=== PATIENT | male | born 1950 | race Hispanic/Latino ===

== ENCOUNTER 2017-01-28 07:13 | Day surgery (SDC) | payer OTHER ==
[2017-01-27 09:18] LABS: MANUAL DIFF NEEDED? NO
[2017-01-27 09:33] LABS: BASO% 0.3 % (0.0-0.8); EOS# 0.27 X1000 (0.0-0.7); EOS% 4.2 % (0.0-10.0); HEMATOCRIT 39.2 % (42.0-52.0); HEMOGLOBIN 12.8 g/dL (14.0-18.0); LYMPH# 0.84 X1000 (1.2-3.4); LYMPH% 13.2 % (20.5-51.1); MCH 29.6 PG (27-31); MCHC 32.7 g/dL (33-37); MCV 90.5 FL (81-99); MONO# 0.76 X1000 (0.11-0.59); MONO% 11.9 % (1.7-9.3); MPV 10.4 FL (7.4-10.4); NEUT% 70.4 % (42.2-75.2); PLT 200 X1000 (130-400); RBC 4.33 XMIL (4.7-6.1)
[2017-01-27 10:20] LABS: CALCIUM 9.3 mg/dL (8.8-10.2); POTASSIUM 4.4 mmol/L (3.5-5.1)
[2017-01-28] MEDS ORDERED: REGLAN ONE (08:33)
[2017-01-28] MEDS ORDERED: PEPCID ONE (08:33)
[2017-01-28] MEDS ORDERED: 1/2 NS 500 ML ONE (08:33)
[2017-01-28] MEDS ORDERED: KEFZOL 2 GM/D5W 50 ML ONE (09:53)
[2017-01-28] MEDS ORDERED: MARCAINE 0.25% PF/EPI 1:200,000 ONE (11:24)
[2017-01-28] MEDS ORDERED: HEPARIN ONE ×2 (11:24→15:24)
[2017-01-28] MEDS ORDERED: XYLOCAINE 1% ONE (11:25)
[2017-01-28] MEDS ORDERED: NS 1,000 ML ONE (11:25)
--- NOTE | 2017-01-28 14:32 | OPERATIVE NOTE ---
PROCEDURE DATE: 01/28/2017 PREOPERATIVE DIAGNOSIS: End-stage renal disease requiring long-term hemodialysis access. POSTOP DIAGNOSIS: End-stage renal disease requiring long-term hemodialysis access. PROCEDURE: Creation of left brachiocephalic fistula. SURGEON: Hosea Davis MD INTERMODAL TRUCK DRIVER: Dr. Hernandes. Dr. Hernandes assisted with the retraction, dissection and creation of the fistula. ANESTHESIA: General endotracheal. INTRAOPERATIVE FINDINGS: Good vein and good artery for fistula. COMPLICATION: None time of dictation. EBL: 100 mL. BRIEF HISTORY: The patient is a 66-year-old male with end-stage renal disease. He needed a more durable long-term access for hemodialysis. The risks, benefits, and alternatives for fistula were discussed. He had preoperative vein mapping, which showed a brachiocephalic fistula being the best possible candidate. The risks, benefits, alternatives for procedure were discussed. All questions were answered. DESCRIPTION OF PROCEDURE: After informed consent was obtained, patient brought to the operative theatre, transferred to operating table, placed supine position. General endotracheal anesthesia was then performed without complication. Formal time-out was then performed confirming patient, date procedure and side, all in agreement. At that time the left arm was completely prepped and draped in sterile fashion. After the time-out, we used the markings on the skin for the vein and artery, made longitudinal incisions over these 2 areas. We were able to identify and dissect out both the brachial artery and the cephalic vein. We tailored them to be a sufficient length to accommodate this. We ligated the cephalic vein and proximally at a bifurcation and suture ligated the more proximal aspects. We tunneled it under the skin slightly to the brachial artery which we had dissected out fully. We placed vessel loops around the artery and all the branches. We gave the patient 3000 heparin. We made a small arteriotomy, flushed the proximal and distal aspects the brachial artery. There was good flow. We then created our anastomoses using 6-0 Prolene. There was no obvious bleeding noted at this point. There was a good thrill through the vein and dilated up appropriately. We then irrigated the area copiously until the suction fluid was clear. Then we closed the skin in layers using 3-0 Vicryl and 4-0 Monocryl. The patient tolerated procedure well and had perfusion to his extremity at the completion the case and sterile dressing applied.
[2017-01-28] MEDS ORDERED: FENTANYL ONE (15:15)
[2017-01-28] MEDS ORDERED: DIPRIVAN 1% ONE (15:15)
[2017-01-28] MEDS ORDERED: ZOFRAN ONE (15:24)
[2017-01-28] MEDS ORDERED: EPHEDRINE ONE (15:25)
[2017-01-28 16:14] VITALS: BP 134/70
--- NOTE | 2017-01-28 17:42 | Extremity Venous Study ---
PROCEDURE NAME: Vein Map/Hemodialysis LT Arm - 01/28/2017 REFERRING PHYSICIAN: Dr. Davis. INTERPRETING PHYSICIAN: Dr. Zamorano. SEASONAL DRIVER: Kaity. The patient is here to have his veins evaluated for fistula construction. The left upper extremity shows the left brachial artery be 7.0 mm, left radial 2.1, left ulnar 2.4. The vessels appear calcific. The cephalic vein zone 1 6.5, zone 2 5.6, zone 3 3.3, zone 4 4.0, zone 5 5.7, zone 6 4.7, zone 7 4.5, zone 8 3.8, there is a clot in the cephalic vein at the wrist. Basilic veins zone 2 6.6, zone 3 5.7, zone 4 5.5, zone 5 3.5, the median cubital vein is 4.7, the basilic vein in zone 6 3.6, zone 7 3.2, zone 8 3.1. INTERPRETATION: The left cephalic vein should be usable. It should be usable not at the most distal aspect of the wrist but in the mid forearm it is usable also above the elbow, the basilic vein also is usable. There appears to be some diminished arterial signals at the wrist.
== END 2017-01-28 16:00 | disposition home or self-care (01) ==
LOC: OPS 07:13
PROVIDERS: ATTEND Surgery
DX: I12.0 Hypertensive chronic kidney disease with stage 5 chronic kidney disease or end stage renal disease (principal); N18.6 End stage renal disease; D64.9 Anemia, unspecified; E11.9 Type 2 diabetes mellitus without complications; E78.00 Pure hypercholesterolemia, unspecified; Z87.891 Personal history of nicotine dependence; Z79.4 Long term (current) use of insulin
CPT/HCPCS: 80048; 82948; 85025; J0690; J1644; J2405; J3010; J7030

== ENCOUNTER 2018-12-08 08:44 | Inpatient (IN) ==
--- NOTE | 2018-12-08 09:17 | PROVIDER DOCUMENTATION ---
HPI-Abdominal Pain/GI Problem - General Chief Complaint: Abdominal Pain Stated Complaint: ABD PAIN Time Seen by Provider: 12/08/18 08:49 Source: patient, family Unable to obtain history due to:: other (limitd due to language) Allergies/Adverse Reactions: Patient Allergies Allergy/AdvReac Type Severity Reaction Status Date / Time No Known Allergies Allergy Verified 08/18/18 11:59 Home Medications: Home Medication List Medication Instructions Recorded Confirmed Last Taken Type Amlodipine [Norvasc] 5 mg PO BID #0 tablet 11/11/16 12/08/18 08/18/18 Rx Insulin Aspart [Novolog] 10 unit SQ TID 01/27/17 12/08/18 08/17/18 13:00 History ROSUVAstatin [Crestor] 1 tab PO HS 01/28/17 12/08/18 08/17/18 History Carvedilol [Coreg] 12.5 mg PO BID 06/25/18 12/08/18 08/18/18 History Insulin Detemir [Levemir] 22 unit SUBQ HS 06/25/18 12/08/18 08/17/18 History Apixaban [Eliquis] 5 mg PO DAILY 12/08/18 12/08/18 Unknown History - History of Present Illness-ABD Nature of Presenting Problems: yest afternoon, began with pain in back, has moved to LLQ, radiates to leg, testicle. No fever, admits to some dysuria, heamturia. No N/V. Says not had BM in sev days, diff examiners get from 5-7 days. Gets dialysis MWF Quality of Pain: reports: sharp Severity in ED: reports: moderate Timing: reports: still present Activities at Onset: reports: none Modifying Factors: improves with: nothing Last BM: other (5-7 days) Review of Systems - Adult - REVIEW OF SYSTEMS - ADULT Constitutional: reports: no symptoms reported Eyes: reports: no symptoms reported Ears, Nose, Mouth & Throat: reports: no symptoms reported Cardiovascular: reports: no symptoms reported Respiratory: reports: no symptoms reported Gastrointestinal: reports: see HPI Genitourinary: reports: see HPI Musculoskeletal: reports: no symptoms reported Integumentary: reports: no symptoms reported Neurological: reports: no symptoms reported Psychiatric: reports: no symptoms reported Endocrine: reports: no symptoms reported Hematologic/Lymphatic: reports: no symptoms reported Allergic/Immunologic: reports: no symptoms reported Past History - Adult - PAST MEDICAL HISTORY-ADULT Review of Records: reports: Medications Reviewed Major Childhood Illnesses: reports: denies history Cardiovascular: reports: cardiac disease, CAD, HTN, ID Respiratory: reports: sleep apnea Gastrointestinal: reports: denies history Obstetrical/Gynecological: reports: denies history Genitourinary: reports: prostate cancer Musculoskeletal: reports: denies history Neurological: reports: CVA (x3) Endocrine/Immune: reports: Diabetes Other Conditions: reports: denies history - PRIOR SURGERIES/PROCEDURES Surgical/Procedure History: reports: cardiac stent, hernia repair, orthopedic ( extremity) (left 5th toe amputation), other (Skin I&D) - IMMUNIZATION STATUS Childhood Immunizations: See Nurse Assessment Flu Vaccine: See Nurse Assessment - FAMILY HISTORY Family History: reviewed, not pertinent Physical Exam-General - PHYSICAL EXAM-ADULT Initial Vital Signs Reviewed: Yes - CONSTITUTIONAL General Appearance: appears well, alert, no apparent distress - EYES Eyes: PERRL/EOMI, pink conjunctivae - HEAD, EARS, NOSE, MOUTH & THROAT HENMT: normocephalic/atraumatic, moist mucous membranes, normal ENT inspection, pharynx normal - NECK Neck: full range of motion, supple, normal inspection - RESPIRATORY Respiratory: lungs clear, normal breath sounds, no pleuratic chest pain, no respiratory distress, no accessory muscle use - CARDIOVASCULAR Cardiovascular: regular rate, rhythm, no edema, no gallop, no murmur - GASTROINTESTINAL (ABDOMEN) Abdominal Exam: normal bowel sounds, soft, tenderness (mild tender epigastrum, entire L abd) - MUSCULOSKELETAL Back Exam: normal inspection, no CVA tenderness, no vertebral tenderness Extremity: normal range of motion, non-tender - SKIN Integumentary: normal color, normal turgor, warm/dry - NEUROLOGIC Neurologic: med spa manager II-XII nml as tested, grossly normal, no motor/sensory deficits - PSYCHIATRIC Psych/Mental Status: normal mood/affect, normal thought content, normal thought process, oriented x 3 Progress - PLAN OF CARE/RESULTS Progress/Plan/Lab Results: Orders Category Date Time Status CT RENAL STONE SEARCH [CT] Stat Exams 12/08/18 09:11 Ordered CBC WITH DIFF [HEME] Stat Lab 12/08/18 09:11 Uncollected COMPREHENSIVE METABOLIC PANEL [CHEM] Stat Lab 01/15/19 09:11 Uncollected URINALYSIS W/POSS RFLX CULT [URINALYSIS] Stat Lab 12/08/18 09:11 Uncollected Result Diagrams: 12/08/18 10:12 12/08/18 10:12 - CT/MRI 1 CT Study: Renal Stone Impression: Abnormal (EXAM: CT RENAL STONE SEARCH INDICATION: Left lower quadrant and testicle pain TECHNIQUE: This exam was performed using automated exposure control, adjustment of mA or kV according to patient size, and/or use of iterative reconstruction technique. COMPARISON: 08/03/2018 FINDINGS: There is subsegmental atelectasis and/or scarring at the lung bases. The gallbladder is contracted and there are layering stones or sludge in the gallbladder lumen. There is subtle haziness at the periphery of the gallbladder which could indicate cholecystitis. However, this was also seen on the previous study and is not as prominent on the current study. The liver, spleen, pancreas , and adrenal glands are essentially unremarkable. There is no renal or ureteral stone. There is inflammatory stranding surrounding the left renal pelvis and along the left ureter. There are also droplets of gas in the left renal collecting system and the proximal left ureter as well as a small droplet of gas in the urinary bladder. 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 There is associated mild dilation of the left renal collecting system. There is no definite gas associated with the left renal parenchyma per se to indicate emphysematous pyelonephritis. However, a component of pyelonephritis cannot be excluded with no IV contrast. There are stable small cysts arising from the left renal cortex. The urinary bladder is nondistended. The appendix is normal. The GI tract is essentially unremarkable, otherwise. IMPRESSION: 1.Findings consistent with at least emphysematous pyelitis on the left. Please see above discussion. 2.No renal or ureteral stone identified. 3.Cholelithiasis and mild stranding around the gallbladder which could indicate cholecystitis. However, this stranding is not as significant as the previous study. 4.Other external/nonacute findings detailed above. Electronically signed by Eduin Staples 12/08/2018 10:28 AM 12/08/18 1028 Interpreting Physician: Eduin Staples MD Dictated Date/Time: 12/08/18 1012 cc: Enrique Mohr MD; Kwabena Casillas Jr, MD) - CONSULTS/PCP/HOSPITALIST Notification #1 *Consult/PCP/Hospitalist*: Stephane Time Discussed: 12:10 Consult Disposition: Admit (TO HOSPITALIST, consult urology) #2 Consult: Vinny Time Discussed: 12:45 Consult Disposition: Admit #3 Consult: Genoveva Time Discussed: 12:46 Consult Disposition: other (will see as consult) Departure - Departure Date of Disposition Decision: 12/08/18 Time of Disposition Decision: 12:09 DIAGNOSIS: Emphysematous pyelitis Disposition: ADMITTED INPATIENT 09 Certified Medical Emergency: Emergent Condition: Stable Referrals and Follow-Ups: Kwabena Casillas Jr, MD [Primary Care Provider] - - Critical Care Note This patient required my direct & personal management of CC.: No Attestation - Physician/ LAITH Attestation Patient care was provided by Advanced Practice Provider:: No The physician spent face to face time with patient:: Yes Advanced Practice Provider documentation review:: Supervising physician onsite and consulted in the evaluation and care of this patient. The physician did have a face to face encounter with the patient.
--- NOTE | 2018-12-08 10:31 | Diag Imaging Result Doc PS360 ---
EXAM: CT RENAL STONE SEARCH INDICATION: Left lower quadrant and testicle pain TECHNIQUE: This exam was performed using automated exposure control, adjustment of mA or kV according to patient size, and/or use of iterative reconstruction technique. COMPARISON: 08/03/2018 FINDINGS: There is subsegmental atelectasis and/or scarring at the lung bases. The gallbladder is contracted and there are layering stones or sludge in the gallbladder lumen. There is subtle haziness at the periphery of the gallbladder which could indicate cholecystitis. However, this was also seen on the previous study and is not as prominent on the current study. The liver, spleen, pancreas, and adrenal glands are essentially unremarkable. There is no renal or ureteral stone. There is inflammatory stranding surrounding the left renal pelvis and along the left ureter. There are also droplets of gas in the left renal collecting system and the proximal left ureter as well as a small droplet of gas in the urinary bladder. 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 There is associated mild dilation of the left renal collecting system. There is no definite gas associated with the left renal parenchyma per se to indicate emphysematous pyelonephritis. However, a component of pyelonephritis cannot be excluded with no IV contrast. There are stable small cysts arising from the left renal cortex. The urinary bladder is nondistended. The appendix is normal. The GI tract is essentially unremarkable, otherwise. IMPRESSION: 1.Findings consistent with at least emphysematous pyelitis on the left. Please see above discussion. 2.No renal or ureteral stone identified. 3.Cholelithiasis and mild stranding around the gallbladder which could indicate cholecystitis. However, this stranding is not as significant as the previous study. 4.Other external/nonacute findings detailed above. Electronically signed by Eduin Staples 12/08/2018 10:28 AM
[2018-12-08 10:37] LABS: BASO# 0.01 X1000 (0.0-0.2); BASO% 0.1 % (0.0-0.8); EOS# 0.12 X1000 (0.0-0.7); EOS% 1.5 % (0.0-10.0); HEMATOCRIT 27.9 % (42.0-52.0); HEMOGLOBIN 8.3 g/dL (14.0-18.0); LYMPH# 0.49 X1000 (1.2-3.4); LYMPH% 6.2 % (20.5-51.1); MCH 28.6 PG (27-31); MCHC 29.7 g/dL (33-37); MCV 96.2 FL (81-99); MONO# 0.75 X1000 (0.11-0.59); MONO% 9.6 % (1.7-9.3); NEUT# 6.48 X1000 (1.4-6.5); NEUT% 82.6 % (42.2-75.2); PLT 200 X1000 (130-400); RDW 16.5 % (11.5-14.5); WBC 7.85 X1000 (4.8-10.8)
[2018-12-08 10:39] LABS: ALB/GLOB RATIO 1.1; CALCIUM 8.2 mg/dL (8.8-10.2); CREATININE 3.8 mg/dL (0.7-1.2); TOTAL BILIRUBIN 0.58 mg/dL (0.20-1.00); TOTAL PROTEIN 7.5 g/dL (6.3-8.3)
[2018-12-08] MEDS ORDERED: VANCOMYCIN 1 GM/NS 1 GM/250 ML IVPB IV ONE (12:11)
[2018-12-08] MEDS ORDERED: ZOSYN 2.25 GM in NS 50 ML IV ONE (12:11)
[2018-12-08] MEDS: MORPHINE IV PRN ×2 (15:39→19:04)
[2018-12-08] MEDS: ZOFRAN IV PRN ×2 (15:58→19:04)
[2018-12-08] MEDS ORDERED: TYLENOL PO PRN (17:30)
--- NOTE | 2018-12-08 18:26 | Diag Imaging Result Doc PS360 ---
EXAM: CHEST-PORTABLE HISTORY: cad and poss pre-op TECHNIQUE: Chest single view COMPARISON: 09/01/2018 FINDINGS: The lungs are well expanded. The heart is borderline mildly prominent. The vessels are slightly distended. There are no infiltrates. No effusion identified. IMPRESSION: Mild vascular distention Electronically signed by Osman Ruiz 12/08/2018 6:25 PM
[2018-12-08 18:41] LABS: URINE SOURCE CATH
[2018-12-08 19:12] LABS: BILIRUBIN URINE NEGATIVE (NEGATIVE); BLOOD URINE LARGE (NEGATIVE); COLOR BROWN; GLUCOSE URINE NEGATIVE (NEGATIVE); KETONE URINE NEGATIVE (NEGATIVE); LEUKOCYTES URINE LARGE (NEGATIVE); NITRITE URINE NEGATIVE (NEGATIVE); PROTEIN URINE 600 mg/dL (NEGATIVE); SP GRAVITY URINE 1.017; TURBIDITY URINE TURBID (CLEAR); UR EPITHELIAL CELLS <10 /HPF (<10); URINE BACTERIA 2+ /HPF; URINE CASTS NONE SEEN; URINE CRYSTALS NONE SEEN; URINE RBC TNTC /HPF (<10); URINE SMALL ROUND CELLS NONE SEEN; URINE WBC TNTC /HPF (<10); URINE YEAST NONE SEEN; UROBILINOGEN URINE NORMAL (NORMAL)
[2018-12-08] MEDS: ZOSYN 2.25 GM in NS 50 ML IV SCH (19:15)
[2018-12-08] MEDS ORDERED: NORVASC PO SCH (21:00)
[2018-12-08] MEDS ORDERED: HUMULIN R SUBQ SCH (21:00)
[2018-12-08] MEDS ORDERED: CRESTOR PO SCH (21:00)
[2018-12-08] MEDS ORDERED: ZOSYN 2.25 GM in NS 50 ML IV SCH (21:00)
[2018-12-08] MEDS ORDERED: COREG PO SCH (21:00)
--- NOTE | 2018-12-08 21:10 | INFECTIOUS DISEASE CONSULT REP ---
DATE: 12/08/2018 CONCLUSION: I agree with Dr. Casillas the patient has emphysematous pyelitis as his type of urinary tract infection. RECOMMENDATIONS: I agree with treating the patient with Zosyn. I have increased the dose from 2.25 g IV every 8 hours to 2.25 g IV every 6 hours. Also, I suggest doing an in-and-out catheterization of the bladder so we can obtain a urine specimen to send for culture. DISCUSSION: The patient in the past day has had left-sided abdominal pain that radiates into his penis. He also has dysuria. Laboratory studies thus far show a CBC with a white count of 7850, hemoglobin 8.3, and platelet count 200,000. Creatinine is 3.8. GFR is 16. Liver function studies are normal. CT scan of the abdomen shows emphysematous pyelitis. PAST MEDICAL HISTORY/REVIEW OF SYSTEMS: Eyes and ears: His hearing and vision is okay. Respiratory: No cough or shortness of breath. Cardiac: No chest pain or palpitations. Genitourinary: See present illness. Bones, joints, muscles: No joint swelling or muscle aching. Neurologic: No seizures. No loss of motor function. Endocrine: Patient is a diabetic but does not have thyroid disease. PREVIOUS HOSPITALIZATIONS AND OPERATIONS: He has a left arm AV fistula. He has previously had a urinary tract infection also. MEDICAL DISEASES: Positive for diabetes mellitus, end-stage renal disease. The patient is on hemodialysis. The patient also has hypertension and stroke. INFECTIOUS DISEASE HISTORY: Positive for UTI. Negative for pneumonia. FAMILY HISTORY: Positive for diabetes mellitus and hypertension. SOCIAL HISTORY: The patient is . He does not have any pets inside. He is disabled. HOME MEDICATIONS: Include Norvasc, Eliquis, Coreg, insulin and Crestor. PHYSICAL EXAMINATION: Vital Signs: Temperature is 99.4 degrees, pulse 71, respirations 20, blood pressure 107/95. Patient is 5 feet 5 inches tall, weighs 168 pounds. General: This is an ill- appearing elderly male. He is in no acute distress. Head/eyes/ears/nose/throat : He can hear my spoken words and see near objects. He does not have any white patches on his tongue. Neck: No stiffness. Lungs: Clear to auscultation. Cardiovascular: Heart rate is regular. Extremities: The patient's legs are edematous but not tender. Neurologic: Patient is awake. He can move his extremities. There is no tremor. Integument: No rash noted. Thank you for the consult. cc: MD Kwabena Quintanilla Jr, MD MTDD
--- NOTE | 2018-12-08 21:26 | HISTORY AND PHYSICAL ---
SUBJECTIVE: The patient started having left upper quadrant abdominal pain, running down to the left lower quadrant starting yesterday. The pain got more severe, so he came to the emergency room. He had a CT scan of the abdomen, which showed old cholelithiasis, and what appears to be emphysematous pyelitis of the left kidney. The patient has been given antibiotics. Consulted Infectious Disease, Urology, and Nephrology. PAST HISTORY: Positive for hyperlipidemia, AODM, coronary artery disease, renal failure, now on dialysis, peripheral neuropathy, hypertension, prostate cancer, status post cerebrovascular accident, history of osteomyelitis, diabetic retinopathy, chronic proteinuria, status post AL, history of DVT, and peripheral vascular disease of the carotids. He has had gout in the past. HOME MEDICATIONS: Eliquis 5 mg daily, amlodipine 5 mg p.o. b.i.d., carvedilol 12.5 mg p.o. b.i.d., rosuvastatin 20 mg at bedtime, NovoLog 10 units with meals t.i.d., and Levemir 22 units subcutaneously at bedtime. ALLERGIES: He has no known drug allergies. SURGICAL HISTORY: Includes a hernia repair and cataract surgery, right eye. FAMILY HISTORY: Father had heart disease. Mother had diabetes. Two brothers had heart disease and diabetes. He has 2 brothers alive, in good health. Four sisters, alive. Four children, alive, in good health. Father had a stroke. Natural brother had a stroke. There is hypertension in the family, hyperlipidemia in the family, diabetes type 2 in the family, and hypothyroidism with 1 sister. SOCIAL HISTORY: Quit smoking about 25 years ago. Does not use smokeless tobacco. Quit all alcohol in 1989. REVIEW OF SYSTEMS: Neurological: Denies headaches, seizures, visual problems, hearing problems. Pulmonary: Denies cough, wheezing, dyspnea. Cardiovascular: Denies chest pain, heart palpitations, PND, orthopnea. Gastrointestinal: Denies hematochezia, hematemesis, melena, constipation, diarrhea. Genitourinary: Denies any difficulty with sexual function, other than what he has had. He has had prostate cancer. He denies burning on urination. Musculoskeletal: He does have a little osteoarthritis. He is able to get up and get around. Endocrine: He does have diabetes mellitus. Psychiatric: Denies depression or anxiety. PHYSICAL EXAMINATION: VITAL SIGNS: Blood pressure is 115/70, respirations 20, pulse 71 and regular, temperature 99.4 degrees Fahrenheit. Weight is 168 pounds, 12.8 ounces. He is 5 feet 5 inches tall. HEENT: He is normocephalic. EOMs intact. PERRLA. Throat clear. Fundi not seen well due to constriction of pupils. NECK: Supple, without thyromegaly, lymphadenopathy, or carotid bruits. LUNGS: Sound clear to auscultation and percussion, without rhonchi, rales, or wheezes. HEART: Regular rate and rhythm, without murmurs, gallops, or friction rubs. ABDOMEN: Soft. Active bowel sounds. No organomegaly or tenderness at this time. External genitalia and rectal exams are deferred. INTEGUMENT: Shows no lesions consistent with melanoma or skin cancers. Lymph nodes are nonpalpable in the cervical and supraclavicular area. PERIPHERAL VASCULAR: Pulses seem to be decreased at 1+/3+ in the feet. NEUROLOGICAL: Cranial nerves 2-12 intact grossly. Sensory and motor intact, except for a little numbness in the lower extremities due to his peripheral neuropathy. LABORATORY STUDIES: Shows a white count 7850, hemoglobin 8.3, which is chronic, hematocrit 27.9. Electrolytes essentially normal. Blood sugar 246 on one check, and 119 on a second check. EKG is pending. Chest x-ray is pending. Urinalysis is pending. The patient has already been started on IV antibiotics. Blood cultures have been drawn, or at least ordered. Renal CT scan shows findings consistent with at least emphysematous pyelitis on the left. Cholelithiasis which he has had for some time was also seen. As far as the pyelitis goes, no definite gas associated with the left renal parenchyma, so perhaps he does not have emphysematous pyelonephritis, and the pyelitis will be easier to treat. ASSESSMENT: 1. Left emphysematous pyelitis. 2. Adult onset diabetes mellitus. 3. Peripheral vascular disease. 4. Coronary artery disease. 5. Status post cerebrovascular accident. 6. Status post deep venous thrombosis. 7. Peripheral neuropathy. 8. Coronary artery disease. 9. History of prostate cancer. 10. Renal failure, on dialysis. PLAN: We will treat with antibiotics. Have consulted Nephrology, Urology, and Infectious Disease. If he has any heart issues, we can get Cardiology to see, but at this time he has had no chest pains. cc: Kwabena Casillas Jr, MD
[2018-12-09] MEDS ORDERED: NS IV ONE (01:00)
[2018-12-09] MEDS ORDERED: D50W SYRINGE ONE (01:00)
[2018-12-09] MEDS ORDERED: D50W SYRINGE IV ONE (01:00)
[2018-12-09] MEDS ORDERED: EPINEPHRINE SYRINGE IV ONE (01:00)
[2018-12-09] MEDS ORDERED: CALCIUM CHLORIDE SYRINGE IV ONE (01:00)
[2018-12-09 01:22] LABS: EOS# 0.02 X1000 (0.0-0.7); EOS% 0.6 % (0.0-10.0); HEMATOCRIT 22.5 % (42.0-52.0); HEMOGLOBIN 6.6 g/dL (14.0-18.0); IMM GRAN# 0.02 X1000 (0.0-0.04); IMM GRAN% 0.6 % (0.0-0.5); LYMPH# 0.31 X1000 (1.2-3.4); LYMPH% 9.1 % (20.5-51.1); MCH 29.2 PG (27-31); MCHC 29.3 g/dL (33-37); MCV 99.6 FL (81-99); MONO# 0.02 X1000 (0.11-0.59); MONO% 0.6 % (1.7-9.3); NEUT# 3.05 X1000 (1.4-6.5); NEUT% 89.1 % (42.2-75.2); PLT 99 X1000 (130-400); RBC 2.26 XMIL (4.7-6.1); RDW 16.5 % (11.5-14.5); WBC 3.42 X1000 (4.8-10.8)
[2018-12-09 01:25] LABS: INR 2.4; PROTIME 27.9 Seconds (11.0-16.0)
[2018-12-09 01:27] LABS: BE -4.4 mmoll (-3.0-3.0); BLOOD TYPE ARTERIAL; HCO3-(ACT) 21.5 mmoll (20.0-26.0); METHB 0.5 % (0.0-1.5); O2(CT) 10.9 mL/dL (15.0-23.0); PCO2(98.6) 30 mmHg (35-45); PO2(98.6) 284 mmHg (60-100); SAMPLE BLOOD; SAO2 97.1 % (95.0-100.0); THB 7.5 g/dL (11.5-17.4); pH(98.6) 7.42 (7.35-7.45)
[2018-12-09 01:27] LABS: PTT 71.1 Seconds (22.3-41.8)
[2018-12-09 01:30] LABS: ALLEN TEST NO; MODALITY AMBU BAG
[2018-12-09 01:39] LABS: ALB/GLOB RATIO 1.1; ALBUMIN 2.7 g/dL (3.5-5.0); CALCIUM 7.8 mg/dL (8.8-10.2); CREATININE 4.9 mg/dL (0.7-1.2); POTASSIUM 5.5 mmol/L (3.5-5.1); TOTAL BILIRUBIN 1.17 mg/dL (0.20-1.00); TOTAL PROTEIN 5.2 g/dL (6.3-8.3)
[2018-12-09] MEDS ORDERED: ROCEPHIN 1 GM in NS 50 ML IV ONE (01:52)
[2018-12-09] MEDS ORDERED: LEVOPHED 8 MG in D5 1/2 NS 250 ML IV SCH ×4 (02:00)
[2018-12-09] MEDS ORDERED: NEO-SYNEPHRINE 50 MG in NS 250 ML IV SCH ×2 (02:00→02:15)
[2018-12-09] MEDS ORDERED: VITAMIN K 5 MG in NS 50 ML IV ONE (02:05)
[2018-12-09] MEDS ORDERED: VITAMIN K SUBQ ONE (02:06)
--- NOTE | 2018-12-09 02:20 | NEPHROLOGY CONSULTATION ---
DATE: 12/08/2018 REASON FOR CONSULTATION: "Dialysis patient." I was contacted directly by phone by Dr. Enrique Mohr in the emergency room and the case was discussed with regard to his renal failure but also with regard to his acute medical illness. HISTORY OF PRESENT ILLNESS: Mr. Ramon is a 68-year-old man with CKD 5D secondary to diabetes. He also has a history of hypertension, peripheral vascular disease, and also hyperlipidemia. He was most recently hospitalized in July of 2018 with abdominal pain and his course has been complicated by GI bleeding, and his hemoglobin has been falling as an outpatient. He came to the emergency room because of worsening abdominal pain. He points to the left upper quadrant and also the left flank, but states that it involves both sides as well. He had subjective chills but no fever. No nausea or vomiting. No change in bowel habits. These symptoms have been progressively worse ultimately leading him to come to the hospital for evaluation and treatment. Total duration of his symptoms is less than 1 day. His evaluation in the emergency room found his white count to be normal but significant abdominal pain on exam. CT of the abdomen demonstrated "emphysematous pyelitis" on the left. As such, he is admitted to the hospital under the care of Dr. Casillas. PAST MEDICAL HISTORY: As above. He also has a history of coronary artery disease, history of prostate cancer with irradiation. ALLERGIES: None. HOME MEDICATIONS: Include insulin, amlodipine, rosuvastatin, carvedilol, apixaban. SOCIAL HISTORY: He is , lives with his . FAMILY HISTORY: Otherwise noncontributory. REVIEW OF SYSTEMS: Otherwise noncontributory. PHYSICAL EXAMINATION: Vital Signs: Blood pressure 107/95, heart rate 71, respirations 20, temperature 99.4 degrees. General: He is a middle-aged man with some acute pain but no acute distress. Skin: Warm and dry. HEENT: Conjunctivae are pink. Pupils are equal. Oropharynx is clear. Tongue is normal. Dentition normal. Neck: Supple. Trachea is midline. Neck vein distention is not present. Heart: PMI is nondisplaced. Regular rate and rhythm with S4. No murmurs. Lungs: Have equal excursion, equal breath sounds. No crackles or wheezes. Abdomen: Soft, moderately tender in the left upper quadrant but no guarding or rebound. No organomegaly or masses. Extremities: Have minimal edema. No clubbing or cyanosis. Neurologic: Exam is nonfocal. IMPRESSION AND PLAN: 1. Abdominal pain with left-sided pyelonephritis. After discussion he was dosed with Zosyn and vancomycin in the emergency room. Cultures are negative thus far. Dr. Harding has seen him and tailored his antibiotics. Dr. Hollingsworth has also been consulted. 2. Anemia. We have been struggling with anemia in the outpatient dialysis unit. Hemoglobin was measured at 7.1 on yesterday and we have plans for him to be seen by Gastroenterology. We will check stool Hemoccult while he is in the hospital. Transfuse if needed. If necessary we will ask Gastroenterology for assistance. 3. Chronic kidney disease 5D. He will have his next routine dialysis tomorrow. Electrolytes and acid-base are in target. cc: MD Kwabena Ross Jr, MD
[2018-12-09] MEDS ORDERED: CALCIUM CHLORIDE SYRINGE ONE (02:30)
[2018-12-09] MEDS ORDERED: SODIUM BICARBONATE 8.4% ONE (02:30)
[2018-12-09] MEDS ORDERED: EPINEPHRINE SYRINGE ONE (02:30)
[2018-12-09] MEDS: PROTONIX IV SCH (02:39)
[2018-12-09] MEDS ORDERED: DOPAMINE 800 MG/D5W 800 MG/500 ML IV.SOLN IV SCH (03:00)
[2018-12-09] MEDS: SOLU-CORTEF IV SCH ×4 (03:01→20:34)
[2018-12-09] MEDS: ZOSYN 2.25 GM in NS 50 ML IV SCH ×4 (03:02→20:34)
--- NOTE | 2018-12-09 04:26 | PROGRESS NOTE ---
DATE: 12/09/2018 SUBJECTIVE: A 68-year-old gentleman admitted with abdominal pain, started in the left upper quadrant, running down to the left lower quadrant, started yesterday. The pain was getting much more severe. CT scan of the abdomen which showed old cholelithiasis, and patient had emphysematous pyelitis of the left kidney. The patient was started on broad-spectrum antibiotics. The patient was evaluated by ID specialist. The patient was started on Zosyn and vancomycin. When nurse went to see the patient, the patient was unresponsive. According to the nurse, he was not breathing and no pulse. She started cardiac massage and called the code. First code, ER physician work at least 15 to 16 minutes, and patient got pulse and blood pressure, when I was called. We sent patient to ICU. Patient coded twice after coming to ICU. When they put the endotracheal tube, the patient did have fresh bleeding. No history of chest pain. The patient is hypotensive. Admission history and physical noted. Patient is on max dose of Levophed, and we added James-Synephrine. Repeat blood work revealed hemoglobin of 6.6, hematocrit of 22.5, WBC count 3.42, platelet count was 99,000. PT/INR 2.4, PTT 71.1, and D-dimer was 4.09. Blood gas: pH 7.42, pCO2 30, pO2 284. Electrolytes: Potassium was 5.5, BUN was 33, creatinine 4.9. AST 1484 and ALT was 908. Initially, urinalysis did reveal too numerous to count WBC and RBC. CT scan results reviewed. OBJECTIVE: Vital Signs: The patient is on pressure support. Blood pressure 68/41. Pulse was 88. Patient is on vent. Pupils: Small, sluggishly reacting. Skin: Senile turgor. Neck: Supple. No JVD. Lungs: Bibasilar crepitations. CVS: S1 and S2 heard. Abdomen: Soft, globular. Bowel sounds present. CHURN TENDER: Patient is on vent, poorly responsive. Uncooperative for detailed exam. CONSIDERATIONS: 1. Status post cardiac arrest. 2. The patient had pyelitis, possible sepsis. 3. The patient does have history of deep venous thrombosis. 4. End-stage renal disease on hemodialysis. 5. Overall, prognosis fair to guarded. I did discuss patient's condition his family. Family is aware of the prognosis. We are going to do a critical care consult, GI prophylaxis, fresh frozen plasma, and blood transfusion. Patient is covered with antibiotics. cc: MD Kwabena Garcia Jr, MD
[2018-12-09 05:29] LABS: ALLEN TEST YES; BE -4.2 mmoll (-3.0-3.0); BLOOD TYPE ARTERIAL; HCO3-(ACT) 21.7 mmoll (20.0-26.0); O2(CT) 5.8 mL/dL (15.0-23.0); O2HB 96.2 % (95.0-99.0); PCO2(98.6) 36 mmHg (35-45); PO2(98.6) 106 mmHg (60-100); SAMPLE BLOOD; SAO2 98.8 % (95.0-100.0); SRATE 14 BPM; THB 4.1 g/dL (11.5-17.4); TVOL 600 mL; pH(98.6) 7.37 (7.35-7.45)
[2018-12-09 05:30] LABS: MODALITY VENTILATOR
[2018-12-09] MEDS ORDERED: NEO-SYNEPHRINE 100 MG in NS 250 ML IV SCH (05:38)
[2018-12-09 06:56] LABS: EOS# 0.01 X1000 (0.0-0.7); EOS% 0.1 % (0.0-10.0); HEMATOCRIT 23.6 % (42.0-52.0); HEMOGLOBIN 7.1 g/dL (14.0-18.0); IMM GRAN# 0.02 X1000 (0.0-0.04); IMM GRAN% 0.2 % (0.0-0.5); LYMPH# 0.19 X1000 (1.2-3.4); LYMPH% 2.4 % (20.5-51.1); MCH 29.5 PG (27-31); MCHC 30.1 g/dL (33-37); MCV 97.9 FL (81-99); MONO# 0.24 X1000 (0.11-0.59); MPV 11.8 FL (7.4-10.4); NEUT# 7.58 X1000 (1.4-6.5); NEUT% 94.3 % (42.2-75.2); PLT 122 X1000 (130-400); RBC 2.41 XMIL (4.7-6.1); RDW 16.6 % (11.5-14.5); WBC 8.04 X1000 (4.8-10.8)
[2018-12-09 07:26] LABS: CALCIUM 8.4 mg/dL (8.8-10.2); CREATININE 4.9 mg/dL (0.7-1.2); POTASSIUM 4.9 mmol/L (3.5-5.1)
[2018-12-09] MEDS: LEVOPHED 16 MG in D5 1/2 NS 250 ML IV SCH ×2 (07:26→15:50)
[2018-12-09 07:32] LABS: LYMPHS 4 % (21-51); MONO 3 % (1-9); SEGS 93 % (42-75)
--- NOTE | 2018-12-09 07:35 | EKG Report ---
Test Performed on : 12/08/2018 5:52:13 PM Test Reason : cad Blood Pressure : / mmHG Vent. Rate : 068 BPM Atrial Rate : 068 BPM P-R Int : 160 ms QRS Dur : 106 ms QT Int : 402 ms P-R-T Axes : 085 053 -18 degrees QTc Int : 427 ms Normal sinus rhythm. Inferior infarct , old Abnormal ECG When compared with ECG of 03-AUG-2018 09:20, premature ventricular complexes. are no longer present T wave inversion now evident in Inferior leads Confirmed by Jose ESPARZA, Luis Adams ([id number]) on 12/09/2018 11:02:51 AM
[2018-12-09] MEDS: HUMALOG SUBQ SCH ×4 (07:59→20:34)
--- NOTE | 2018-12-09 08:19 | Diag Imaging Result Doc PS360 ---
EXAM: CHEST-PORTABLE INDICATION: non-responsive TECHNIQUE: One view COMPARISON: 12/08/2018 FINDINGS: There has been interval placement of an ET tube. The tip projects over the trachea and above the marilin at about the T3 level. The lungs remain grossly clear with no new infiltrates. The central vasculature is slightly prominent similar to the previous study suggesting mild pulmonary venous congestion. Cardiac silhouette is stable. IMPRESSION: Interval intubation. Essentially stable chest, otherwise. Electronically signed by Eduin Staples 12/09/2018 8:17 AM
--- NOTE | 2018-12-09 08:21 | EKG Report ---
Test Performed on : 12/09/2018 02:45:44 AM Test Reason : CODEED Blood Pressure : / mmHG Vent. Rate : 068 BPM Atrial Rate : 068 BPM P-R Int : 202 ms QRS Dur : 112 ms QT Int : 402 ms P-R-T Axes : 060 -22 -15 degrees QTc Int : 427 ms Sinus rhythm. with occasional premature ventricular complexes. Inferior infarct (cited on or before 08-DEC-2018) Abnormal ECG When compared with ECG of 08-DEC-2018 17:52, (Unconfirmed) Nonspecific T wave abnormality has replaced inverted T waves in Inferior leads Confirmed by Jose ESPARZA, Luis Adams ([id number]) on 12/12/2018 7:11:12 AM
[2018-12-09] MEDS ORDERED: NS 250 ML ONE (08:32)
--- NOTE | 2018-12-09 09:48 | PROGRESS NOTE ---
DATE: 12/09/2018 SUBJECTIVE: The patient is on a ventilator now and nonresponsive. Stares straight ahead. Not moving any extremities. Earlier this morning, he was found unresponsive and in asystole. He was coded, placed on the ventilator, and brought to the ICU. There was blood noted in the endotracheal tube. OBJECTIVE: Laboratory Data: He had some chronic anemia with a hemoglobin of 8.3 when he came in. His platelet count was good at 200,000. His white count was 7850. This morning, his white count was down to 3420, his hemoglobin was 6.2, platelet count dropped to 99,000. Repeat earlier this morning, he had an 8040 white count with a hemoglobin of 7.1 and a platelet count of 122,000. It certainly sounds like he has had some pancytopenia, perhaps from his infection. The patient initially came in with emphysematous pyelitis. He was placed on antibiotics immediately. Cultures are pending. He seems fairly stable, though. He was having less left lower and left mid abdominal pain, supposedly from his urinary tract infection. Vital Signs: Blood pressure is 122/63, respirations 15, pulse 63, temperature 98 degrees Fahrenheit. Apparently, he did become hypotensive after being on pressor agents. General: He is not responsive at this time. HEENT: Pupils seem to be fixed. He is staring straight ahead. Neck: Supple. Lungs: Clear to auscultation and percussion without rhonchi, rales, or wheezes. Heart: Regular rate and rhythm without murmurs, gallops, or friction rubs. Abdomen: Soft. Active bowel sounds. No organomegaly or tenderness. Neurological Examination: Not moving anything at this point. ASSESSMENT: 1. Emphysematous pyelitis. 2. Cardiac arrest. 3. Respiratory arrest. 4. Probable sepsis. 5. Pancytopenia. PLAN: The patient now is getting blood. We will consult neurology and cardiology. Condition is critical. I have talked with family members at the bedside and explained how critical he is. The patient also has secondary diagnoses of coronary artery disease, status post cerebrovascular accident, and diabetes mellitus. cc: Kwabena Casillas Jr, MD
--- NOTE | 2018-12-09 10:16 | CONSULTATION ---
DATE OF CONSULTATION: 12/09/2018 PRESENT ILLNESS: The patient is being treated for emphysematous pyelitis. Last night, the patient went into asystole. Today, he is on the ventilator and appears to be comatose. He may have suffered a stroke. His liver enzymes are elevated probably from shock liver. MEDICATIONS: The patient is on Zosyn, pending culture results from the blood and urine. PHYSICAL EXAMINATION: Vital Signs: Temperature is 98 degrees, pulse 63, respirations 15, blood pressure 122/63. General: This patient is intubated and sedated. Head/eyes/ ears/nose/throat: He has an orotracheal tube in place. There is no drainage from the nose or ears. Neck: No stiffness. Thorax: The patient has a tunneled hemodialysis catheter. Lungs : Clear to auscultation. Cardiovascular: Heart rate is regular. Abdomen: Soft and nontender. The patient has a peritoneal dialysis catheter in place. Neurologic: The patient appears comatose. He did not respond to verbal stimuli. There was no tremor. LAB AND X-RAY: Chest x-ray shows that the lung ward are clear of infiltrates. There is some mild pulmonary venous congestion. Blood and urine cultures are pending. Urinalysis had white cells and bacteria present. Patient's CBC shows a white count of 3420, hemoglobin 6.6, and platelet count 99,000. Blood gases show a pH of 7.37, a pO2 of 106, a pCO2 of 36, creatinine is 4.9, GFR is 12. The AST is 1484. ASSESSMENT AND PLAN: Patient has emphysematous pyelitis and unfortunately this was complicated by a cardiac arrest last night. The patient may have had a stroke also. He has become more pancytopenic than he was when he came in and his liver enzymes are up probably secondary to shock liver. Patient appears to be septic from his emphysematous pyelitis and my plan is to continue Zosyn pending culture results. COMORBIDITIES: He is elderly and he has diabetes mellitus and end-stage renal disease, and the patient also is on hemodialysis. cc: MD Kwabena Quintanilla Jr, MD MTDD
--- NOTE | 2018-12-09 11:21 | PULMONOLOGY CONSULTATION ---
DATE: 12/09/2018 REASON FOR CONSULTATION: Cardiopulmonary arrest. REQUESTING PHYSICIAN: Kwabena Casillas Jr, MD HISTORY OF PRESENT ILLNESS: Mr. Ennis is a 68-year-old white male with diabetes mellitus, coronary artery disease, end-stage renal disease. The patient has had 3 strokes according to the family and has severe coronary artery disease. The 911 emergency dispatcher indicates the patient has been referred for coronary artery bypass grafting due to severe disease, but the outcome of that consultation is not known, but he has not received revascularization. The patient was admitted to the hospital with pyelonephritis. Early this morning, he became unresponsive and sustained a cardiopulmonary arrest. Initial cardiac arrest was between 15 and 20 minutes, and he was transferred to the Intensive Care Unit and had 2 additional cardiac arrests by report. PAST MEDICAL HISTORY/PROBLEM LIST: 1. Severe coronary artery disease. The patient is in need of revascularization as outlined above. 2. Renal failure, on dialysis. 3. Diabetes mellitus. 4. Peripheral vascular disease. 5. History of prior strokes. 6. Diabetic retinopathy. 7. History of deep vein thrombosis. 8. History of gout. 9. Status post cataract surgery, right eye. 10. Status post hernia repair. 11. Hypertension. 12. Dyslipidemia. SOCIAL HISTORY: No tobacco or alcohol use listed. FAMILY HISTORY: Noncontributory to current presentation. REVIEW OF SYSTEMS: Cannot be obtained. PHYSICAL EXAMINATION: General: Reveals an elderly male on mechanical ventilation. He does have occasional spontaneous respiratory effort. He does not respond to pain. Vital Signs: Blood pressure 117/62, heart rate 64, respiratory rate 14, oxygen saturation 100% on 80% FiO2. FiO2 was decreased while I was at the bedside to 35%, maintaining a saturation of 94%. HEENT: The pupils are equal. Oropharynx appears clear. Neck: Supple. Chest: Reveals good air entry bilaterally without wheezing or rhonchi. Cardiac: S1 and S2. Abdomen: Soft and without hepatosplenomegaly. Extremities: Without edema. LABORATORIES: Chest x-ray reveals endotracheal tube in good position. No acute infiltrates. White blood count 8.04, hemoglobin 7.1, platelet count 122,000. Arterial blood gas, initial this morning pH 7.37, pCO2 of 36, PO2 of 106, with a lactate of 9.9. IMPRESSION: A 68-year-old with end-stage renal disease, severe coronary artery disease, and peripheral vascular disease with prior strokes, who presented with pyelonephritis. He has sustained a cardiopulmonary arrest. He has had resuscitation efforts well over 20 minutes. He is not following commands, and he is at high risk for significant anoxic encephalopathy. The event occurred approximately 8 hours ago. RECOMMENDATIONS: 1. Continue ventilatory support. 2. Wean FiO2 to prevent hyperoxygenation of the blood, which might contribute to free radical injury to the brain. 3. Continue treatment for diabetes mellitus. 4. I agree with transfusion as you are doing to maintain a hemoglobin greater than 7. 5. The patient's prognosis is poor. It is quite probable that he has sustained significant anoxic injury. This information was referred to the family, and they are aware that he may not recover from this arrest. cc: MD Kwabena Melchor Jr, MD
--- NOTE | 2018-12-09 13:26 | CONSULTATION ---
DATE OF CONSULTATION: 12/09/2018 IMPRESSIONS: 1. Status post cardiopulmonary arrest. Initial rhythm asystole. However, patient not monitored at the time and found unresponsive. Resuscitative efforts of 17 minutes, restoring sinus rhythm and pulse. Patient presently comatose. 2. Cerebrovascular disease with history of previous strokes. 3. Severe coronary disease. Patient had coronary angiography June 2018, demonstrating occluded right coronary artery, severe LAD stenosis, and severe stenosis in ramus intermedius with preserved left ventricular ejection fraction. 4. End-stage renal disease, requiring hemodialysis 3 times a week. 5. Diabetes mellitus, longstanding. 6. Extensive peripheral vascular disease. 7. Diabetic retinopathy. 8. Hypertension. 9. Hyperlipidemia. RECOMMENDATIONS: 1. Continue supportive care as you are doing. 2. Echocardiography. 3. The patient's condition and prognosis discussed at length with his daughter. His prognosis for meaningful recovery is very limited and they were made aware of this. HISTORY: This 68-year-old white male with a past history of severe coronary disease, cerebrovascular disease with previous cerebrovascular accident, end-stage renal disease requiring chronic dialysis, longstanding diabetes mellitus, hypertension, hyperlipidemia, and diabetic retinopathy is now status post cardiopulmonary arrest and is comatose. Cardiology consultation was requested. The patient was admitted with flank pain and evidence of urinary tract infection. He had been found to have a kidney infection and was admitted for parenteral antibiotics. Very early this morning, not long after midnight he was found unresponsive. Resuscitative efforts were initiated as he was pulseless. Initial rhythm was asystole. After 17 minutes of resuscitation time an organized rhythm of sinus rhythm and pulse was restored. He is now in the intensive care unit comatose, on intravenous pressors. He is also on ventilator. According to his daughter his health has been poor for some time. He was considered for coronary bypass surgery but has been felt to be significant risk and efforts were being made to improve his perioperative risk. He had an uneventful day yesterday. He dialyzed yesterday. His daughter relates that he fell weak after dialysis. There has been no recent chest pain. PAST MEDICAL HISTORY: 1. Atherosclerotic coronary disease, severe. 2. Extensive peripheral vascular disease. 3. Cerebrovascular disease with previous cerebrovascular accidents. 4. Diabetes mellitus, longstanding, with associated diabetic retinopathy. 5. End-stage renal disease requiring chronic hemodialysis. 6. Hypertension. 7. Hyperlipidemia. 8. Previous DVT. 9. Gout. PAST SURGICAL HISTORY: Hernia repair and cataract surgery. Currently admitted with kidney infection. SOCIAL HISTORY: He is . He quit smoking about 25 years ago. He does not drink alcohol. FAMILY HISTORY: Positive for coronary disease and diabetes. REVIEW OF SYSTEMS: Not obtainable given patient's comatose state. PHYSICAL EXAMINATION: General: Reveals an overweight, older male who is unresponsive, on the ventilator. Vital signs: Blood pressure 128/65, heart rate 65 with ECG showing sinus rhythm. Oxygen saturation 96% on ventilator. HEENT: Mucous membranes are moist. Neck: Supple without discernible jugular distention. Carotid bruits cannot be appreciated. Chest: Clear to auscultation anteriorly. Cardiac Exam: Reveals a regular rate and rhythm without appreciable murmur or gallop. Abdomen: Soft. Bowel sounds audible. Extremities: Without edema. Neurologic: Reveals him to be unresponsive. There are no spontaneous respirations. PERTINENT DATA: Twelve lead EKG from yesterday is reviewed and demonstrates sinus rhythm and an old inferior infarct. Repeat ECG today shows no significant change. LABORATORY DATA: Includes a white blood cell count 3.42, hematocrit 22.5, hemoglobin 6.6, platelet count 99,000. Sodium 137, potassium 5.5, chloride 93, carbon dioxide 21, BUN 33, creatinine 4.9, glucose 275. Troponin T 0.124. Albumin 2.7. cc: MD Kwabena Parry Jr, MD
[2018-12-09 15:15] LABS: CK INDEX 1.1 (0.0-2.5); CK-MB 5.38 ng/mL (0.0-5.0)
--- NOTE | 2018-12-09 21:01 | CONSULTATION ---
DATE OF CONSULTATION: 12/09/2018 INDICATION: Consultation for emphysematous pyelitis. CONSULTING PHYSICIAN: Dr. Green. HISTORY OF PRESENT ILLNESS: A 68-year-old male with history of diabetes, renal failure who is on dialysis, coronary artery disease and other multiple medical comorbidities who presented with left abdominal pain. CT scan of the abdomen was done revealing air in the left renal pelvis and ureter consistent with emphysematous pyelitis. There was no evidence of urolithiasis or significant hydroureteronephrosis. Please note that at the time the patient was seen his clinical course has significantly worsened as he was found unresponsive, had reportedly coded and has been intubated. Is currently in ICU on pressors and reportedly per nursing staff nonresponsive to painful stimuli. Hence, the records are obtained via medical record chart. PAST MEDICAL HISTORY: Diabetes, coronary artery disease, hyperlipidemia, renal failure on dialysis, hypertension, prostate cancer, CVA, DVT, gout, myocardial infarction. ALLERGIES: No known drug allergies. HOME MEDICATIONS: Eliquis, amlodipine, carvedilol, rosuvastatin, NovoLog, Levemir. PAST SURGICAL HISTORY: Herniorrhaphy and cataract excision. FAMILY HISTORY: Reported coronary artery disease and diabetes, as well as hypertension. SOCIAL HISTORY: Former smoker, former alcohol user. REVIEW OF SYSTEMS: Unobtainable secondary to patient's intubated status. PHYSICAL EXAMINATION: T 98.6, P 64, BP 121/63.General: Ill-appearing male who is intubated and unresponsive. HEENT: Endotracheal tube in place. Cardiovascular: Regular rhythm. Pulmonary: Bilateral breath sounds consistent with mechanical ventilation. Abdomen: Soft, nondistended. Genitourinary: Normal external male genitalia. No blood in the meatus noted. Dermatologic: No obvious skin rashes. Neurologic: Neurologic he is not alert or oriented. PERTINENT LABS: His white cell count is 3000, platelet count is 99,000, INR is 2.4, lactic acid is 9.9, creatinine is 4.9. His urinalysis is significant for infection. PERTINENT IMAGES: CT abdomen and pelvis on 12/08/2017 as per HPI. ASSESSMENT AND PLAN: A 68-year-old male with kidney failure who has been managed with dialysis who has poorly controlled diabetes mellitus which is likely the cause of his emphysematous pyelitis. Per nurse nursing staff and family who is present at bedside, the patient does not make very much urine at all. Hence, there has not been a Farrell catheter inserted. He is obviously in critical condition. I personally reviewed CT images and he does not have evidence of ureteral obstruction, stone or significant hydroureteronephrosis. I have discussed with the family that in the absence of renal or ureteral stone, cystoscopy and left ureteral stent placement would not help patient in his management, should rather be medical with antibiotics while awaiting culture results from his urine and blood. He is obviously in critical condition and not a suitable surgical candidate in any fashion at this time. The family voiced understanding. PLAN: 1. I agree with antibiotic management. 2. No urologic intervention such as stenting needed. 3. Please call with questions. cc: MD Kwabena Sarmiento Jr, MD
[2018-12-09 22:45] LABS: CK INDEX 0.8 (0.0-2.5); CK-MB 3.87 ng/mL (0.0-5.0)
[2018-12-10] MEDS: ZOSYN 2.25 GM in NS 50 ML IV SCH ×3 (02:27→14:00)
[2018-12-10] MEDS: SODIUM CHLORIDE 0.9% INJ SCH (02:30)
[2018-12-10] MEDS: SOLU-CORTEF IV SCH ×4 (02:30→20:30)
[2018-12-10] MEDS: LEVOPHED 16 MG in D5 1/2 NS 250 ML IV SCH ×2 (02:30→14:36)
[2018-12-10] MEDS: PROTONIX IV SCH (02:30)
--- NOTE | 2018-12-10 05:08 | CONSULTATION ---
DATE OF CONSULTATION: 12/09/2018 HISTORY OF PRESENT ILLNESS: Mr. Raymon Ramon had cardiac arrest with a documented period of asystole. He has not regained consciousness. He has been afebrile. Systolic blood pressures have recently ranged 100s to 120s. Liver enzymes are elevated today compared to yesterday. Blood sugars have been stable in the 200s. He has anemia. I do not see anything on the chemistry profile that would explain encephalopathy. He has not had brain imaging this admission. There is reported past history of diabetes mellitus, ischemic heart disease, end -stage renal disease. There is reported to be a history of previous stroke and I do not have details of that history. PHYSICAL EXAMINATION: On exam now, he is supine, intubated, mechanically ventilated. There is very slight lateral eye movement with passive head turning. There is very slight pupil reaction to bright light. There is also very slight corneal reflex present bilaterally. There was no spontaneous limb movement. Tone is reduced and symmetric in the limbs. Plantar response is silent. He did not respond to noxious stimulation over the limbs. Head is unremarkable. Neck is supple without meningismus. IMPRESSION: Global encephalopathy, some brainstem reflexes present. This is likely anoxic brain injury and may eventually be determined to be irreversible. I discussed that outcome frankly with the son. I do not have any urgent suggestion from a neurologic standpoint. We might consider brain imaging and EEG later, depending on his clinical course. Thanks for asking neurology to see Mr. Raymon Ramon. cc: MD Kwabena Jackson III, Jr, MD MTDD
[2018-12-10 05:11] LABS: ALLEN TEST YES; BE 1.8 mmoll (-3.0-3.0); BLOOD TYPE ARTERIAL; HCO3-(ACT) 26.3 mmoll (20.0-26.0); METHB 0.5 % (0.0-1.5); O2(CT) 11.9 mL/dL (15.0-23.0); O2HB 96.4 % (95.0-99.0); PCO2(98.6) 35 mmHg (35-45); PO2(98.6) 158 mmHg (60-100); SAMPLE BLOOD; SAO2 97.2 % (95.0-100.0); SRATE 14 BPM; THB 8.5 g/dL (11.5-17.4); TVOL 600 mL; pH(98.6) 7.47 (7.35-7.45)
[2018-12-10 05:13] LABS: MODALITY VENTILATOR
[2018-12-10 06:12] LABS: CALCIUM 8.5 mg/dL (8.8-10.2); CREATININE 6.8 mg/dL (0.7-1.2)
[2018-12-10] MEDS: HUMALOG SUBQ SCH ×4 (06:12→21:12)
[2018-12-10 06:29] LABS: BASO# 0.01 X1000 (0.0-0.2); BASO% 0.1 % (0.0-0.8); EOS% 1.5 % (0.0-10.0); HEMATOCRIT 27.6 % (42.0-52.0); HEMOGLOBIN 8.5 g/dL (14.0-18.0); IMM GRAN# 0.47 X1000 (0.0-0.04); IMM GRAN% 3.4 % (0.0-0.5); LYMPH# 0.38 X1000 (1.2-3.4); LYMPH% 2.8 % (20.5-51.1); MCH 29.7 PG (27-31); MCHC 30.8 g/dL (33-37); MCV 96.5 FL (81-99); MONO# 0.44 X1000 (0.11-0.59); MONO% 3.2 % (1.7-9.3); MPV 12.4 FL (7.4-10.4); NEUT# 12.13 X1000 (1.4-6.5); PLT 93 X1000 (130-400); RBC 2.86 XMIL (4.7-6.1); RDW 16.9 % (11.5-14.5); WBC 13.63 X1000 (4.8-10.8)
[2018-12-10] MEDS ORDERED: NS 2,000 ML MISC PRN (06:46)
[2018-12-10 06:49] LABS: CK INDEX 0.9 (0.0-2.5); CK-MB 3.63 ng/mL (0.0-5.0)
--- NOTE | 2018-12-10 06:56 | NEPHROLOGY PROGRESS NOTE ---
DATE: 12/09/2018 SUBJECTIVE: The patient is now intubated and in the Intensive Care Unit. I have reviewed his records since his encounter with me yesterday. He was also seen by Dr. Harding and was hemodynamically stable through the evening. Vital signs recorded at 1937 last evening found blood pressure 117/45 with a heart rate of 82 and temperature of 99.9. He suffered a systolic cardiac arrest around midnight. He received CPR on 3 different occasions, was intubated and transferred to the Intensive Care Unit and treated with vasopressor support, etc. At the time of my exam, he is unresponsive and not on sedation. Review of the records finds asystole as the primary rhythm in his arrest. OBJECTIVE: Vital Signs: Blood pressure 106/60, heart rate 62, respiration 18, afebrile. Intake 1.7 L. Output 0. PHYSICAL EXAMINATION: Unresponsive. Eyes are deviated upward and roving. Pupils are equal and sluggish. Oropharynx is dry. Neck is supple. Trachea is midline. Neck veins are not distended. Heart is regular. No gallops. Lungs are equal. No crackles. Abdomen is soft, quiet, nontender. Extremities have trace edema. No clubbing or cyanosis. IMPRESSION: Chronic kidney disease, 5D. Today is his routine dialysis today but, given the events and his uncertain neurologic status, we will withhold dialysis today and re-evaluate in the morning. Electrolytes and acid-base are in target. I have reviewed his medications and no adjustments are required from the perspective of his kidney disease. Unfortunately, he has a poor prognosis. cc: MD Kwaebna Ross Jr, MD
--- NOTE | 2018-12-10 07:11 | Diag Imaging Result Doc PS360 ---
EXAM: CHEST-1 VIEW 12/10/2018 HISTORY: SOB TECHNIQUE: AP portable at 0519 COMMENT: There is an endotracheal tube with its tip at the thoracic inlet. There is interstitial pulmonary edema which was not present on 12/09/2018. There is also atelectasis or pneumonia in the left lower lobe was not previously present. IMPRESSION: Worsened pulmonary edema and left lower lobe atelectasis. Electronically signed by Caleb Shah 12/10/2018 7:09 AM
[2018-12-10 07:29] LABS: EOS 1 % (1-10); LYMPHS 3 % (21-51); MONO 4 % (1-9); SEGS 92 % (42-75)
--- NOTE | 2018-12-10 09:45 | PROGRESS NOTE ---
DATE: 12/10/2018 SUBJECTIVE: The patient is still not moving. His on the ventilator. Does not really show any signs of neurological activity at this point. OBJECTIVE: Vital Signs: Blood pressure 112/57, respirations 14, pulse 59, temperature 97.4 degrees Fahrenheit. HEENT: He is normocephalic. Lungs: Sound fairly clear to auscultation. Heart: Regular rate and rhythm without murmurs, gallops, or friction rubs. Abdomen: Soft. Active bowel sounds. No organomegaly or tenderness. Neurologic Examination: The patient is not responsive at all. Laboratory: Shows a white count now up to 13,630, hemoglobin 8.5, platelet count is only 93,000. Blood gas shows a pH of 7.47, pCO2 of 35, PO2 of 158. Lactate has come down from 9.9 to 2.5. Potassium is 6.0, creatinine 6.8, BUN 60. He does have gram-negative rods growing in his urine. He has positive blood cultures as well for the gram-negative rods. Chest x-ray shows some atelectasis in the left base and/or pneumonia. He has a little pulmonary edema. ASSESSMENT: 1. Emphysematous pyelitis. 2. Respiratory arrest. 3. Status post asystole. 4. Probable myocardial infarction. 5. Probable brain anoxia. 6. Sepsis. 7. Diabetes mellitus. 8. Coronary artery disease. 9. Status post cerebrovascular accident. 10. Peripheral vascular disease. 11. Status post prostate cancer. 12. He is also status post deep venous thrombosis. 13. History of osteomyelitis. 14. Renal failure. PLAN: I had a long talk with the patient's son. His was in the room as well, though she speaks very little [place]ian. We talked about his general condition, the fact that he is not moving and that he may have anoxia and permanent brain damage. Dr. Meyer, neurology, also spoke with him about this yesterday. I think at this point, what we should do is continue to support him until we see that he is not responding and then, under Dr. Meyer's guidance, decide when we should do an EEG and CT scan of the head. We will see if the patient responds. CONDITION: Critical. PROGNOSIS: Poor. cc: Kwabena Casillas Jr, MD
--- NOTE | 2018-12-10 12:07 | NEPHROLOGY PROGRESS NOTE ---
DATE: 12/10/2018 SUBJECTIVE: Unchanged. OBJECTIVE: Vital Signs: Blood pressure 117/58, heart rate 60, respirations 16. Generally: Unresponsive. Eyes are deviated upward and somewhat roving. Possibly posturing. HEENT: Conjunctivae are pink. Oropharynx is clear. Neck: Neck veins are not visible. Heart: Regular. No gallops. Lungs: Equal. No crackles. Abdomen: Soft, nontender. Bowel sounds present. Extremities: Have trace edema. No clubbing or cyanosis. IMPRESSION: Chronic kidney disease 5D. Hyperkalemic this morning. SLED today with a 4 K bath, 27 bicarbonate and a goal of 2 L ultrafiltration. cc: MD Kwabena Ross Jr, MD
--- NOTE | 2018-12-10 12:44 | PROGRESS NOTE ---
DATE: 12/10/2018 LOCATION: ICU bed 14. SUBJECTIVE: Mr. Raymon Ramon appears unchanged clinically. OBJECTIVE: He has some lateral eye movement with passive head turning. Pupils react to bright light. Corneal reflex is brisk bilaterally today. There is no spontaneous limb movement. Limb tone remains reduced and symmetric. Plantar response is silent bilaterally. There was no response to moderate noxious stimulation over the limbs. Neck is supple. IMPRESSION: Global encephalopathy, likely anoxic brain injury. There has not been significant improvement or deterioration clinically over the last 24 hours. We will go ahead with brain imaging and EEG to see if these will help with prognosis. I discussed this with family, including son who speaks Serbian. Thanks for asking Neurology to see Mr. Raymon Ramon. cc: MD Kwabena Jackson III, Jr, MD
--- NOTE | 2018-12-10 18:05 | INFECTIOUS DISEASE PROGRESS NO ---
DATE: 12/10/2018 PRESENT ILLNESS: The patient is being treated for a emphysematous pyelitis. There is an associated bacteremia. The patient also may have pneumonia, which could be due to the same organism as well. MEDICATIONS: The patient is on Zosyn. OBJECTIVE: Vital Signs: Temperature is 97.4, pulse 58, respirations 21, blood pressure 106/54. General: This is an intubated and sedated patient. He is in no acute distress. HEENT: His eyes are open, but he does not have a blink reflex. Pupils are dilated. No drainage is coming from the nose or ears. Neck: No stiffness. Extremity: Left arm AV fistula present. Lungs: Clear to auscultation. Cardiovascular: Regular heart rate. Abdomen: Soft and not tender. The patient has a peritoneal dialysis catheter in place. Neurologic: The patient is comatose. He did not respond to verbal stimuli, and he did not have a blink reflex. LAB AND X-RAY: Chest x-ray shows pulmonary edema and a left lower lobe atelectasis/pneumonia. Urine is growing Klebsiella. Blood is growing a gram-negative tessa. CBC shows a white count of 13,630, hemoglobin 8.5, and platelet count 93,000. Arterial blood gases show a pH of 7.47, a pO2 of 158 and a pCO2 of 35. The creatinine is 6.8. GFR is 20. ASSESSMENT AND PLAN: The patient has emphysematous pyelitis, which unfortunately is complicated by a cardiac arrest. He also is bacteremic with that organism. The patient may have a pneumonia which could be also due to Klebsiella or it could represent atelectasis. My plan is to switch the patient from Zosyn to Ancef. The dose of Ancef has been adjusted for the patient's renal failure. COMORBIDITIES: The patient is elderly and he has diabetes mellitus and end- stage renal disease. The patient is on hemodialysis. cc: MD Kwabena Quintanilla Jr, MD MTDD
--- NOTE | 2018-12-10 18:42 | Diag Imaging Result Doc PS360 ---
EXAM: CT HEAD W/O CONTRAST 12/10/2018 HISTORY: evaluate brain edema TECHNIQUE: This exam was performed using automated exposure control, adjustment of mA or kV according to patient size, and/or use of iterative reconstruction technique. COMMENT: There are calcifications in both vertebral and internal carotid arteries. There are encephalomalacic changes in both parietal lobes the right temporal lobe and the left frontal lobe. There is no evidence of mass effect or bleed. The encephalomalacic changes have not changed significantly since 08/05/2018. There is an endotracheal tube in the pharynx. Both maxillary sinuses demonstrate marked mucosal thickening and there is mild mucosal thickening in the right sphenoid sinus. IMPRESSION: Extensive chronic encephalomalacic changes. 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 Electronically signed by Caleb Shah 12/10/2018 6:39 PM
[2018-12-10] MEDS: KEFZOL 1 GM/D5W 1 GM/50 ML IVPB IV SCH (20:32)
[2018-12-11] MEDS: PROTONIX IV SCH (02:18)
[2018-12-11] MEDS: SOLU-CORTEF IV SCH ×4 (02:18→21:28)
[2018-12-11] MEDS: SODIUM CHLORIDE 0.9% INJ SCH (02:18)
--- NOTE | 2018-12-11 04:07 | PROGRESS NOTE ---
DATE: 12/10/2018 SUBJECTIVE: The patient continues unresponsive on the ventilator. OBJECTIVE: Blood pressure 107/58, heart rate 60 and regular, with ECG monitor showing sinus rhythm. Oxygen saturation 100%. Jugular venous distention cannot be appreciated. Chest is clear to auscultation anteriorly. Cardiac exam reveals a regular rate and rhythm, without appreciable murmur or gallop. Extremities are without edema. LABORATORY DATA: Includes a white blood cell count 13.63, hematocrit 27.6, hemoglobin 8.5, platelet count 93. CPK 418, with a CPK-MB of 3.63, and a CPK-MB index 0.9. Troponin T 0.2. IMPRESSION: 1. Status post cardiopulmonary arrest, with initial rhythm of asystole. Resuscitative efforts were continued for approximately 17 minutes prior to restoring sinus rhythm and pulse. The patient remains comatose. Mild elevation in CPK more consistent with skeletal muscle etiology, given low CPK-MB index. 2. Cerebrovascular disease, with history of previous cerebrovascular accident. 3. Severe coronary disease. 4. End-stage renal disease, requiring hemodialysis 3 times a week. 5. Diabetes mellitus, long standing. 6. Extensive peripheral vascular disease. 7. Diabetic retinopathy. 8. Hypertension. 9. Hyperlipidemia. RECOMMENDATIONS: 1. Continue supportive care. 2. Follow up echocardiography result. 3. Patient's condition and cardiac issues discussed with family at bedside. cc: MD Kwabena Parry Jr, MD
[2018-12-11] MEDS: LEVOPHED 16 MG in D5 1/2 NS 250 ML IV SCH ×2 (04:20→21:30)
[2018-12-11 05:00] LABS: BASO# 0.01 X1000 (0.0-0.2); BASO% 0.1 % (0.0-0.8); EOS# 0.01 X1000 (0.0-0.7); EOS% 0.1 % (0.0-10.0); HEMATOCRIT 27.9 % (42.0-52.0); HEMOGLOBIN 8.8 g/dL (14.0-18.0); IMM GRAN# 0.12 X1000 (0.0-0.04); IMM GRAN% 0.8 % (0.0-0.5); LYMPH# 0.43 X1000 (1.2-3.4); MCH 29.8 PG (27-31); MCHC 31.5 g/dL (33-37); MCV 94.6 FL (81-99); MONO# 0.42 X1000 (0.11-0.59); MONO% 2.9 % (1.7-9.3); MPV 12.2 FL (7.4-10.4); NEUT# 13.43 X1000 (1.4-6.5); NEUT% 93.1 % (42.2-75.2); PLT 110 X1000 (130-400); RBC 2.95 XMIL (4.7-6.1); RDW 16.2 % (11.5-14.5); WBC 14.42 X1000 (4.8-10.8)
[2018-12-11 05:02] LABS: ALLEN TEST YES; BE -5.5 mmoll (-3.0-3.0); BLOOD TYPE ARTERIAL; HCO3-(ACT) 20.7 mmoll (20.0-26.0); MODALITY VENTILATOR; O2(CT) 11.8 mL/dL (15.0-23.0); O2HB 97.2 % (95.0-99.0); PCO2(98.6) 31 mmHg (35-45); PO2(98.6) 111 mmHg (60-100); SAMPLE BLOOD; SAO2 98.8 % (95.0-100.0); SRATE 14 BPM; THB 8.5 g/dL (11.5-17.4); TVOL 600 mL; pH(98.6) 7.39 (7.35-7.45)
[2018-12-11 05:25] LABS: CALCIUM 8.3 mg/dL (8.8-10.2); CREATININE 3.3 mg/dL (0.7-1.2); POTASSIUM 5.9 mmol/L (3.5-5.1)
[2018-12-11] MEDS: HUMALOG SUBQ SCH ×4 (06:22→21:29)
--- NOTE | 2018-12-11 06:41 | OPERATIVE NOTE ---
PROCEDURE DATE: 12/10/2018 PREOPERATIVE DIAGNOSES: 1. Anoxic brain injury. 2. End-stage renal disease. 3. Pyelonephritis. POSTOPERATIVE DIAGNOSES: 1. Anoxic brain injury. 2. End-stage renal disease. 3. Pyelonephritis. PROCEDURE PERFORMED: Right femoral central lumen catheter placement. ANESTHESIA: None. ESTIMATED BLOOD LOSS: Less than 5 mL. SPECIMENS: None. INDICATIONS: A 68-year-old gentleman who had an anoxic brain injury related to severe pyelonephritis and a code event. He is now intubated and is being worked up for anoxic brain injury. He is on vasopressors and needs better access. OPERATIVE FINDINGS: Normal vascular anatomy in the right groin. OPERATIVE NOTE: Risks, benefits and alternatives were discussed with his daughter, who consented to the procedure. His surgical site was confirmed. His right groin was prepped with chlorhexidine solution and draped in the usual fashion. After time-out, the femoral artery pulse was palpated. The vein was accessed on the first pass medially. Dark nonpulsatile venous blood was noted. The wire threaded easily. Skin ricky was made. The tract was dilated and a pre- flushed 7-Divehi catheter was advanced to the triple-lumen. The wire was removed and advanced without resistance. It withdrew blood and flushed without resistance. It was secured with a silk suture. Dressing was applied. He tolerated it well. No complication. cc: MD Kwabena Peacock Jr, MD
--- NOTE | 2018-12-11 07:49 | Diag Imaging Result Doc PS360 ---
CHEST-1 VIEW - 12/11/2018 INDICATION: SOB COMPARISON: 12/10/2018 FINDINGS: Stable endotracheal tube at T2. There has been significant improvement in aeration of the lower lobes bilaterally, with better visualization of both hemidiaphragms. No new infiltrates. Stable low lung volumes. Stable cardiomegaly. IMPRESSION: Significant improvement from prior. Electronically signed by Radames Modi 12/11/2018 7:47 AM
[2018-12-11] MEDS: KEFZOL 1 GM/D5W 1 GM/50 ML IVPB IV SCH ×2 (08:10→21:00)
[2018-12-11 11:00] LABS: URINE SOURCE CATH
[2018-12-11 11:19] LABS: BILIRUBIN URINE NEGATIVE (NEGATIVE); BLOOD URINE MODERATE (NEGATIVE); COLOR BROWN; GLUCOSE URINE NEGATIVE (NEGATIVE); KETONE URINE NEGATIVE (NEGATIVE); LEUKOCYTES URINE LARGE (NEGATIVE); NITRITE URINE NEGATIVE (NEGATIVE); PH URINE 6.5; PROTEIN URINE 100 mg/dL (NEGATIVE); SP GRAVITY URINE 1.023; TURBIDITY URINE TURBID (CLEAR); UR EPITHELIAL CELLS >10 /HPF (<10); URINE BACTERIA 2+ /HPF; URINE CASTS NONE SEEN; URINE RBC TNTC /HPF (<10); URINE WBC TNTC /HPF (<10); URINE YEAST NONE SEEN; UROBILINOGEN URINE NORMAL (NORMAL)
--- NOTE | 2018-12-11 12:03 | PROGRESS NOTE ---
DATE: 12/11/2018 SUBJECTIVE: The patient is in ICU bed 14. Mr. Raymon Ramon does not show significant clinical change. CT scan did not show anything definitely remarkable. An EEG is planned. OBJECTIVE: On exam, there is very slight lateral eye movement with passive head turning. Right pupil reacted slightly. I was not certain I saw left pupil reaction to bright light. Corneal reflexes are minimal bilaterally. Limb tone is symmetric. He had 1 episode of spontaneous rigidity with decerebrate features, but I could not elicit that with noxious stimulation. ASSESSMENT AND PLAN: No new thoughts or new suggestions right now. We will see what the EEG shows. Thanks for asking Neurology to see Mr. Raymon Ramon. cc: MD Kwabena Jackson III, Jr, MD
--- NOTE | 2018-12-11 12:13 | PROGRESS NOTE ---
DATE: 12/11/2018 SUBJECTIVE: The patient is still not responsive on the ventilator; however, with sternal rub he does move and open his eyes a little bit more. CT scan of the head shows some old white matter changes, otherwise stable. The EEG is pending. OBJECTIVE: Vital Signs: Blood pressure 125/61, respirations 14, pulse 61. Temperature 97.6 degrees Fahrenheit. HEENT: He is mostly staring straight ahead. Pupils with minimal wide reaction. Lungs: Sound fairly clear to auscultation. Heart: Regular rate and rhythm without murmurs, gallops, or friction rubs. Abdomen: Soft. Active bowel sounds. No organomegaly or tenderness. Neurological: The patient is just not moving much at all. DIAGNOSTIC DATA: White count has gone up to 14,420, hemoglobin 8.8, hematocrit 27.9. Blood gas shows a pH of 7.39, pCO2 of 31, PO2 of 111. Lactate is down further to 1.8, which is an improvement. He is on 50% FiO2. Potassium came down from 6 to 5.9. Creatinine is down to 3.3 from 6.8. BUN is 34. Repeat urinalysis still shows 100 protein, WBCs too numerous to count, RBCs too numerous to count. Microbiology showed Klebsiella pneumoniae in his blood and in his urine. Sputum culture is pending. Repeat urine culture done today is pending. ASSESSMENT AND PLAN: 1. Emphysematous pyelitis. 2. Respiratory arrest. 3. Status post asystole and resuscitation. 4. Probable myocardial infarction. 5. Probable brain anoxia. 6. Sepsis. 7. Diabetes mellitus. 8. Coronary artery disease. 9. Status post cerebrovascular accident. 10. Peripheral vascular disease. 11. Status post prostate cancer. 12. Status post deep vein thrombosis. 13. Osteomyelitis. 14. Renal failure. 15. Thrombocytopenia with platelet count 110,000. At one time, he did have a pancytopenia. That seems to be resolving except for the low platelet count. No family members were here today 16. His prognosis is poor. 17. His condition is critical. 18. EEG pending. cc: Kwabena Casillas Jr, MD
--- NOTE | 2018-12-11 12:15 | EEG REPORT ---
DATE: 12/11/2018 EEG: #[id number]. COMMENT: This is a digitally recorded EEG done portably in the ICU on a 68-year-old patient with persistent coma following cardiopulmonary arrest with documented asystole. FINDINGS: There is poorly sustained 4-6 hertz rhythm across the hemispheres with highest amplitude centrally and frontally reaching 30 microvolts. There are some periods of suppression of this activity. Usual ICU artifacts are identified and do not hinder interpretation. There was no variation to correlate with spontaneous drowsing or sleep. No epileptiform discharge was identified. Photic stimulation did not alter the record. There was no response to calling his name. There was no response to vigorous attempt to wake him. Eyes open spontaneously, but there was no significant change in the EEG at that time. INTERPRETATION: Abnormal EEG because of generalized slowing with minimal burst suppression features. CORRELATION: This is indicative of a diffuse encephalopathy, consistent with anoxic brain injury. This EEG carries a relatively poor prognosis following anoxic brain injury. cc: MD Kwabena Jackson III, Jr, MD
--- NOTE | 2018-12-11 12:44 | INFECTIOUS DISEASE PROGRESS NO ---
DATE: 12/11/2018 PRESENT ILLNESS: The patient has an emphysematous pyelitis and associated bacteremia due to Klebsiella. MEDICATIONS: The patient currently is on Ancef 1 g IV every 12 hours. PHYSICAL EXAMINATION: Vital Signs: Temperature is 97.8 degrees, pulse 62, respirations 20, blood pressure 115/54. General: This patient is intubated and sedated. He is in no acute distress. Head, eyes, ears, nose, and throat: He does not have any drainage from his nose or ears. He does not respond to verbal stimuli. He does open and close his eyelids to a certain extent. Neck: No meningismus. Thorax: No increased AP diameter. Extremities: The patient has an AV fistula in the left arm and it is functional. Lungs: Clear to auscultation. Cardiovascular: Regular heart rate. Abdomen: Soft and not tender. The patient does have a peritoneal dialysis catheter in place. Neurologic: The patient is comatose. He did not respond to verbal stimuli. He did, as mentioned above, open and close his eyelids to a certain amount. LAB AND X-RAY: The patient's chest x-ray showed significant improvement in the bilateral infiltrates. A repeat urinalysis shows white cells and bacteria. CBC shows a white count of 14,420, hemoglobin 8.8, and platelet count 110,000. Creatinine is 3.3. GFR is 19. The blood gases show a pH of 7.39, a PO2 of 111, and a pCO2 of 31. ASSESSMENT AND PLAN: The patient has emphysematous pyelitis with bacteremia. Unfortunately, it was complicated by cardiac arrest. I have ordered repeat blood cultures to see if the bacteremia has cleared. The patient may have a pneumonia, although it could be that it is more of a pulmonary venous congestion rather than pneumonia. In any event, the chest x-ray is much better. The patient does have a leukocytosis, however, he is on a high dose of steroids, which I think is causing the leukocytosis. COMORBIDITIES: The patient is elderly. He has diabetes mellitus and end-stage renal disease. He is on hemodialysis. cc: MD Kwabena Quintanilla Jr, MD
--- NOTE | 2018-12-11 12:56 | PROGRESS NOTE ---
DATE: 12/11/2018 ADDENDUM: EEG shows generalized slowing with some burst suppression features. This is a typical post-anoxic brain injury pattern and carries poor prognosis. I discussed that frankly with the family including, the , who does not speak [place], and 4 children that speak [place] very well. We discussed options, including withdrawal of support versus continuing support for short term. They understand my impression that he will not recover, but that he might survive. The family will consider options. cc: MD Kwabena Jackson III, Jr, MD
--- NOTE | 2018-12-11 17:27 | ECHO REPORT ---
ORDER DATE: 12/10/2018 ECHOCARDIOGRAPHIC MEASUREMENTS: 1. Interventricular septum 1.3, left ventricular posterior wall 1.3, diastolic diameter 5.2, left atrium 4.4, aorta 3.4. 2. Technically suboptimal study. Definity was used to assess left ventricular systolic function. 3. Aortic valve leaflets are trileaflet. 4. Mitral valve was normal. Tricuspid valve was normal. 5. There is no aortic stenosis or regurgitation. There is mild mitral regurgitation. 6. Trace pulmonary regurgitation. 7. Trace tricuspid regurgitation. 8. Normal left ventricular cavity size. Mild left ventricular hypertrophy. Estimated ejection fraction of 50% to 55%. There is inferior hypokinesis. 9. Anterior echo-free space suggestive of pericardial fat pad noted. There is no pericardial effusion or obvious intracardiac mass or thrombus. cc: MD José Miguel Beckman MD Roger H. Moss Jr, MD
--- NOTE | 2018-12-11 17:44 | PROGRESS NOTE ---
DATE: 12/11/2018 SUBJECTIVE: Patient continues unresponsive on the ventilator. OBJECTIVE: Blood pressure 120/59, heart rate 60, oxygen saturation 100%.Neck: There is no significant jugular distention. Chest: Clear to auscultation. Cardiac Exam: Reveals a regular rate and rhythm without appreciable murmur or gallop. Extremities: Without edema. LABORATORY DATA: Includes a white blood cell count of 14.42, hematocrit 27.9, hemoglobin 8.8, platelet count 110,000. Sodium 139, potassium 5.9, chloride 102, carbon dioxide 18, BUN 34, creatinine 3.3, glucose 245. IMPRESSION: 1. Status post cardiopulmonary arrest with initial rhythm of asystole. Patient had extended resuscitative time before restoring sinus rhythm and pulse. 2. Severe anoxic encephalopathy. 3. Cerebrovascular disease with previous cerebrovascular accident. 4. Severe coronary disease. 5. End-stage renal disease requiring hemodialysis. 6. Extensive peripheral vascular disease. 7. Diabetes mellitus, longstanding with associated diabetic retinopathy. 8. Hypertension. 9. Hyperlipidemia. RECOMMENDATIONS: 1. Continue supportive care as desired by family. 2. Prognosis appears to be poor. Agree with consultation of palliative care. cc: MD Kwabena Parry Jr, MD
[2018-12-12] MEDS: PROTONIX IV SCH (03:00)
[2018-12-12] MEDS: SOLU-CORTEF IV SCH ×4 (03:32→20:40)
--- NOTE | 2018-12-12 04:45 | NEPHROLOGY PROGRESS NOTE ---
DATE: 12/11/2018 SUBJECTIVE: Unchanged. Remains altered. OBJECTIVE: Vital Signs: Blood pressure 122/54, heart rate 60, respirations 14, afebrile. General: No acute distress. Skin: Warm and dry. HEENT: Conjunctivae are pink. Neck veins are not distended. Heart: Regular. No gallops. Lungs: Coarse. No crackles. Abdomen: Soft, nontender. Bowel sounds present. Extremities: No edema. No clubbing or cyanosis. IMPRESSION: Chronic kidney disease 5D. He will have his next dialysis tomorrow, sustained low- efficiency dialysis. Volume status is acceptable. No changes. cc: MD Kwabena Ross Jr, MD
[2018-12-12 05:28] LABS: BASO# 0.04 X1000 (0.0-0.2); BASO% 0.2 % (0.0-0.8); HEMATOCRIT 29.2 % (42.0-52.0); HEMOGLOBIN 9.1 g/dL (14.0-18.0); IMM GRAN# 0.09 X1000 (0.0-0.04); IMM GRAN% 0.5 % (0.0-0.5); LYMPH% 4.3 % (20.5-51.1); MCH 29.2 PG (27-31); MCHC 31.2 g/dL (33-37); MCV 93.6 FL (81-99); MONO# 0.48 X1000 (0.11-0.59); MONO% 2.9 % (1.7-9.3); MPV 12.1 FL (7.4-10.4); NEUT# 15.13 X1000 (1.4-6.5); NEUT% 92.1 % (42.2-75.2); PLT 102 X1000 (130-400); RBC 3.12 XMIL (4.7-6.1); RDW 15.8 % (11.5-14.5); WBC 16.44 X1000 (4.8-10.8)
[2018-12-12 06:13] LABS: ALLEN TEST YES; BE -4.9 mmoll (-3.0-3.0); BLOOD TYPE ARTERIAL; HCO3-(ACT) 21.1 mmoll (20.0-26.0); METHB 1.2 % (0.0-1.5); O2(CT) 12.8 mL/dL (15.0-23.0); O2HB 95.7 % (95.0-99.0); PCO2(98.6) 30 mmHg (35-45); PO2(98.6) 124 mmHg (60-100); SAMPLE BLOOD; SAO2 97.1 % (95.0-100.0); SRATE 14 BPM; THB 9.3 g/dL (11.5-17.4); TVOL 600 mL; pH(98.6) 7.41 (7.35-7.45)
[2018-12-12 06:14] LABS: MODALITY VENTILATOR
[2018-12-12 06:18] LABS: CALCIUM 8.2 mg/dL (8.8-10.2); CREATININE 5.2 mg/dL (0.7-1.2)
[2018-12-12] MEDS: HUMALOG SUBQ SCH ×4 (06:31→20:40)
[2018-12-12 06:40] LABS: POTASSIUM 6.4 mmol/L (3.5-5.1)
[2018-12-12 06:55] LABS: BANDS 6 % (0-1); LYMPHS 2 % (21-51); MONO 1 % (1-9); SEGS 91 % (42-75)
--- NOTE | 2018-12-12 07:56 | Diag Imaging Result Doc PS360 ---
EXAM: CHEST-1 VIEW INDICATION: SOB TECHNIQUE: One view COMPARISON: 12/11/2018 FINDINGS: The ET tube is in stable position. Pulmonary venous congestion is approximately stable as compared to the previous study. There are probably trace effusions that are stable. No new consolidation is identified. Cardiac silhouette is stable. IMPRESSION: Essentially stable chest. Electronically signed by Eduin Staples 12/12/2018 7:53 AM
[2018-12-12] MEDS: KEFZOL 1 GM/D5W 1 GM/50 ML IVPB IV SCH ×2 (08:46→20:40)
[2018-12-12] MEDS ORDERED: NS 2,000 ML MISC PRN (09:41)
[2018-12-12] MEDS ORDERED: TIGHT: 0.2 ML/HR FOR DIALYSIS MISC PRN (09:41)
[2018-12-12] MEDS ORDERED: HEPARIN IV PRN (09:41)
--- NOTE | 2018-12-12 12:51 | PROGRESS NOTE ---
DATE: 12/12/2018 SUBJECTIVE: The patient is unresponsive, Occasionally when you touch his leg, he will stretch his left hand, but he does not respond to sternal rub. I think this is all lower brain function reactions. Family members were present, including the son who speaks very good Thai, and I explained to him the circumstances. Dr. Meyer also explained the EEG report that showed findings consistent with brain anoxia. Family is trying to make the hard decision about whether to withdrawal support. I think we are going to wait a couple of days anyway and repeat EEG. OBJECTIVE: Vital Signs: Blood pressure 120/51, respirations 16, pulse 62, temperature 99.3 degrees Fahrenheit on the ventilator. HEENT: He is barely responsive with pupils. Lungs: Clear to auscultation and percussion without rhonchi, rales, or wheezes. Heart: Regular rate and rhythm without murmurs, gallops, friction rubs. Abdomen: Soft. Active bowel sounds. No organomegaly or tenderness. Neurological exam: Patient is just not responsive. LABS: White count 16,440, hemoglobin 9.1, hematocrit 29.2, blood gas of 7.41, pCO2 of 30, and pO2 of 124 with an FiO2 of 50%. Potassium is up to 6.4, creatinine is 5.2, BUN is 76. Urinalysis yesterday still showed white blood cells too numerous to count and red blood cells too numerous to count. He has positive blood cultures with Klebsiella pneumoniae, as well as in his urine. Repeat urine cultures have been done, but reports are not back yet. ASSESSMENT: 1. Emphysematous pyelitis. 2. Sepsis. 3. Respiratory arrest. 4. Probable anoxic brain injury. 5. Adult onset diabetes mellitus. 6. Renal failure. PLAN: We will continue to support at this time. We will repeat EEG within the next couple of days at their request and continue to support probable with dialysis. cc: Kwabena Casillas Jr, MD
--- NOTE | 2018-12-12 16:52 | NEPHROLOGY PROGRESS NOTE ---
DATE: 12/12/2018 SUBJECTIVE: No real changes. OBJECTIVE: Blood pressure 121/57, heart rate 64, respirations 14, temperature 99.1. General: No acute distress. Skin is warm and dry. Conjunctivae are pink. Heart is regular. No gallops. Lungs were equal, no crackles. Abdomen is soft, nontender. Bowel sounds present. Extremities: No edema, clubbing, or cyanosis. IMPRESSION: 1. Chronic kidney disease 5D. 2. Moderate hyperkalemia and metabolic acidosis today. PLAN: He will have intermittent hemodialysis for 3.5 hours using a 2 potassium bath and a goal of 2 L ultrafiltration as his blood pressure allows. No other changes from my perspective. cc: MD Kwabena Ross Jr, MD
[2018-12-13] MEDS: PROTONIX IV SCH (02:07)
[2018-12-13] MEDS: SOLU-CORTEF IV SCH ×4 (02:08→20:49)
[2018-12-13 05:26] LABS: ALLEN TEST YES; BE 1.2 mmoll (-3.0-3.0); BLOOD TYPE ARTERIAL; HCO3-(ACT) 25.9 mmoll (20.0-26.0); METHB 0.5 % (0.0-1.5); O2(CT) 13.6 mL/dL (15.0-23.0); O2HB 96.8 % (95.0-99.0); PCO2(98.6) 28 mmHg (35-45); PO2(98.6) 136 mmHg (60-100); SAMPLE BLOOD; SAO2 97.8 % (95.0-100.0); SRATE 14 BPM; THB 9.8 g/dL (11.5-17.4); TVOL 600 mL; pH(98.6) 7.53 (7.35-7.45)
[2018-12-13 05:28] LABS: MODALITY VENTILATOR
[2018-12-13] MEDS: HUMALOG SUBQ SCH ×4 (06:35→20:48)
--- NOTE | 2018-12-13 08:14 | Diag Imaging Result Doc PS360 ---
EXAM: CHEST-1 VIEW INDICATION: SOB TECHNIQUE: One view COMPARISON: 12/12/2018 FINDINGS: ET tube is in stable position. There is suggestion of pulmonary venous congestion that is similar to the previous study. Small bilateral pleural effusions with adjacent atelectasis are essentially stable. No definite new consolidation is identified. Cardiac silhouette is stable. IMPRESSION: Essentially stable chest. Electronically signed by Eduin Staples 12/13/2018 8:12 AM
[2018-12-13] MEDS: KEFZOL 1 GM/D5W 1 GM/50 ML IVPB IV SCH ×2 (09:15→20:49)
--- NOTE | 2018-12-13 10:51 | PROGRESS NOTE ---
DATE: 12/13/2018 SUBJECTIVE: The patient is still not responsive, on the ventilator, showing no purposeful movement. OBJECTIVE: Vital Signs: Temperature of 98.8 degrees Fahrenheit, blood pressure 114/59, respirations 16, pulse 73. HEENT: Normocephalic, but staring straight ahead. Lungs: Lungs sound fairly clear to auscultation. Heart: Regular rate and rhythm without murmurs, gallops, friction rubs. Abdomen: Soft. Active bowel sounds. No organomegaly or tenderness. Neurological: The patient does not even respond to sternal rub. LABORATORY DATA: White count 16,440, hemoglobin 9.1, hematocrit 29.2, platelet count 102,000. Blood gas was done yesterday. Other blood work is due today. Today's blood gas, however, showed a pH of 7.53, pCO2 of 28, PO2 of 136. Lactate is 2.10. Urinalysis 2 days ago still showed WBCs too numerous to count. Blood cultures from 12/11/2018 showed no growth. ASSESSMENT: 1. Respiratory arrest. 2. Status post asystole and code. 3. Most probable anoxic brain injury. 4. Emphysematous pyelitis. 5. Sepsis. 6. Coronary artery disease. 7. Peripheral vascular disease. 8. Adult-onset diabetes mellitus. 9. Hyperlipidemia. 10. Hypertension. 11. Hypotension. 12. Thrombocytopenia. 13. Did have pancytopenia, which has improved. PLAN: Continue care. Plan is to hopefully do another EEG to help us make a decision whether to continue with support. At this time, we will continue with support. Family members were in the room, and I talked with them today as well. cc: Kwabena Casillas Jr, MD
[2018-12-13 17:28] LABS: URINE SOURCE CATH
[2018-12-13 17:54] LABS: CLARITY TURBID (CLEAR); COLOR BROWN; KETONE URINE TRACE mg/dL (NEGATIVE); NITRITE URINE POSITIVE (NEGATIVE); URINE BACTERIA 4+ /HFP; URINE CAST NONE SEEN /LPF; URINE CRYSTAL NONE SEEN /HPF; URINE EPITHELIAL CELLS <10 /HPF (<10); URINE RBC TNTC /HPF (<10); URINE WBC TNTC /HPF (<10); URINE YEAST NONE SEEN /HPF
[2018-12-13] MEDS: LEVOPHED 16 MG in D5 1/2 NS 250 ML IV SCH (20:49)
[2018-12-14 00:26] LABS: BILIRUBIN URINE SMALL (NEGATIVE); BLOOD URINE NEGATIVE (NEGATIVE); GLUCOSE URINE NEGATIVE (NEGATIVE); LEUKOCYTES URINE NEGATIVE (NEGATIVE); PH URINE 5.5; PROTEIN URINE 30 mg/dL (NEGATIVE); SP GRAVITY URINE >= 1.030; UROBILINOGEN URINE 0.2 EU/dL (0.2-1.0)
[2018-12-14] MEDS: PROTONIX IV SCH (02:37)
[2018-12-14] MEDS: SOLU-CORTEF IV SCH ×4 (02:38→22:09)
[2018-12-14 04:49] LABS: ALLEN TEST YES; BE -1.8 mmoll (-3.0-3.0); BLOOD TYPE ARTERIAL; HCO3-(ACT) 23.5 mmoll (20.0-26.0); METHB 0.8 % (0.0-1.5); O2HB 95.9 % (95.0-99.0); PCO2(98.6) 32 mmHg (35-45); PO2(98.6) 145 mmHg (60-100); SAMPLE BLOOD; SRATE 14 BPM; THB 10.9 g/dL (11.5-17.4); TVOL 600 mL; pH(98.6) 7.44 (7.35-7.45)
[2018-12-14 04:58] LABS: MODALITY VENTILATOR
[2018-12-14] MEDS: HUMALOG SUBQ SCH ×4 (06:21→22:09)
[2018-12-14 06:28] LABS: CALCIUM 7.9 mg/dL (8.8-10.2); POTASSIUM 5.7 mmol/L (3.5-5.1)
[2018-12-14 06:30] LABS: BASO# 0.01 X1000 (0.0-0.2); BASO% 0.1 % (0.0-0.8); HEMATOCRIT 30.1 % (42.0-52.0); HEMOGLOBIN 9.7 g/dL (14.0-18.0); IMM GRAN# 0.09 X1000 (0.0-0.04); LYMPH# 0.52 X1000 (1.2-3.4); LYMPH% 5.6 % (20.5-51.1); MCH 29.4 PG (27-31); MCHC 32.2 g/dL (33-37); MCV 91.2 FL (81-99); MONO# 0.41 X1000 (0.11-0.59); MONO% 4.4 % (1.7-9.3); MPV 12.9 FL (7.4-10.4); NEUT# 8.31 X1000 (1.4-6.5); NEUT% 88.9 % (42.2-75.2); PLT 104 X1000 (130-400); RDW 15.6 % (11.5-14.5); WBC 9.34 X1000 (4.8-10.8)
[2018-12-14] MEDS ORDERED: HEPARIN IV PRN (06:52)
[2018-12-14] MEDS ORDERED: NS 2,000 ML MISC PRN (06:52)
[2018-12-14] MEDS ORDERED: TIGHT: 0.2 ML/HR FOR DIALYSIS MISC PRN (06:52)
--- NOTE | 2018-12-14 07:09 | Diag Imaging Result Doc PS360 ---
EXAM: CHEST-1 VIEW 12/14/2018 HISTORY: SOB TECHNIQUE: AP portable at 0540 COMMENT: There is an endotracheal tube with its tip at thoracic inlet. There is a small amount of fluid in the right minor fissure. There is some improvement in the interstitial opacities present in the left base. There is still residual pulmonary edema bilaterally. IMPRESSION: Cardiomegaly and pulmonary edema. Small right pleural effusion. Electronically signed by Caleb Shah 12/14/2018 7:07 AM
[2018-12-14 07:33] LABS: BANDS 1 % (0-1); LYMPHS 10 % (21-51); MONO 4 % (1-9); SEGS 83 % (42-75)
--- NOTE | 2018-12-14 09:08 | INFECTIOUS DISEASE PROGRESS NO ---
DATE: 12/14/2018 PRESENT ILLNESS: The patient has a Klebsiella emphysematous pyelitis with associated bacteremia. Unfortunately, the patient had cardiac arrest. MEDICATIONS: The patient currently is receiving Ancef 1 g IV every 12 hours. This is treating for the urinary tract infection, bacteremia, and if there is any pneumonia, it is covering the Escherichia coli that was found in the sputum. PHYSICAL EXAMINATION: Vital Signs: Temperature is 100 degrees, pulse 67, respirations 14, blood pressure 120/61. General: The patient is intubated. He is not sedated but he is comatose. Head, Eyes, Ears, Nose, and Throat: He, as mentioned above, is intubated. There is no drainage from the nose or ears. Neck: No meningismus. Lungs: Clear to auscultation. Cardiovascular: Heart rate is regular. Extremities: The patient has an AV fistula in the left arm which is functional. Abdomen: Soft and nontender. The patient also has a peritoneal dialysis catheter in the abdomen. Neurologic: The patient is comatose. He did not respond to verbal stimuli. There is no tremor. LAB AND X-RAY: Chest x-ray shows cardiomegaly with pulmonary edema. CBC shows a white count of 9340, hemoglobin 9.7, platelet count 104,000. Blood gases show a pH of 7.44, PO2 of 145, and a pCO2 of 32. Patient's creatinine is 6. The GFR is 9. ASSESSMENT AND PLAN: The patient has emphysematous pyelitis with bacteremia and the patient may have an Escherichia coli pneumonia. My plan is to continue Ancef. Unfortunately, the patient has had a cardiac arrest and he remains comatose. COMORBIDITIES: The patient is elderly. He has diabetes mellitus and end-stage renal disease. The patient is also on hemodialysis. cc: MD Kwabena Quintanilla Jr, MD
--- NOTE | 2018-12-14 09:27 | PROGRESS NOTE ---
DATE: 12/14/2018 SUBJECTIVE: The patient is still comatose. He has a little bit of a grimace with a sternal rub now he did not have before. Family members by bedside and explained this to him. EEG is pending. OBJECTIVE: Vital Signs: Stable. Temperature 99.4 degrees Fahrenheit. HEENT: Normocephalic. Lungs: Sound fairly clear to auscultation. Chest x-ray shows a little improvement of pulmonary edema. Heart: Regular rate and rhythm without murmurs, gallops, friction rubs. Abdomen: Soft. Active bowel sounds. No organomegaly or tenderness. Neurological: Patient is still not with purposeful movement. ASSESSMENT: 1. Respiratory arrest. 2. Emphysematous pyelitis. 3. Sepsis. 4. Renal failure. 5. Probable brain anoxia. 6. Diabetes mellitus. 7. Hypertension. 8. Peripheral vascular disease. 9. Coronary artery disease. 10. Probable myocardial infarction. 11. Status post asystole and coded. PLAN: The EEG today. Reevaluate brain. cc: Kwabena Casillas Jr, MD
[2018-12-14] MEDS: KEFZOL 1 GM/D5W 1 GM/50 ML IVPB IV SCH ×2 (10:00→22:09)
--- NOTE | 2018-12-14 10:44 | PROGRESS NOTE ---
DATE: 12/14/2018 Mr. Tato Ramon is in ICU bed 14. Mr. Raymon Ramon has shown further deterioration clinically. Also, the EEG today shows a significant increase in the periods of voltage suppression. Overall, his clinical course and EEG findings are typical of evolving anoxic brain injury with no evidence of reversibility. I discussed very frankly with family this very poor prognosis. I am in favor of decision to withdraw support. I do not have any other suggestion from a Neurology standpoint. cc: MD Kwabena Jackson III, Jr, MD MTDD
--- NOTE | 2018-12-14 12:23 | NEPHROLOGY PROGRESS NOTE ---
DATE: 12/14/2018 DATE AND TIME SEEN: On 12/14/2018 at 0735 hours. SUBJECTIVE: Mr. Raymon Ramon is resting quietly in bed. He is unresponsive , ventilator dependent. LABORATORY DATA: Sodium 139, potassium 5.7, chloride 94, CO2 of 20, BUN 110, creatinine 6, glucose 305, anion gap 25, calcium 7.9. White count 9.34, hemoglobin 9.7. ABGs show pH 7.44, CO2 of 32, PO2 of 145, bicarbonate 23.5 on 50% FiO2 with a lactate of 1.9. OBJECTIVE: Vital Signs: Temperature 99.4 degrees, blood pressure 92/51, heart rate 66, respirations 14. He is on 50% FiO2. Last recorded saturation was 100%. Input and Output: He has had 145 input, and he has only had 15 mL output to Farrell catheter. General : On physical exam, this is a 68-year-old male. He is in no acute distress. Skin: Warm and dry. HEENT: Normocephalic, atraumatic. Conjunctivae are disconjugated. Mucous membranes dry. Oral ET tube is in place. Neck: Supple. Trachea midline. No JVD. Cardiovascular : Regular rate and rhythm. S4 is present. Lungs: Clear to auscultation bilaterally. Equal excursion. No crackles or wheezes. Abdomen: Soft, nontender, hypo bowel sounds. Genitourinary: Not inspected. Minimal void with dialysis assist. Extremities: Have no edema. No clubbing or cyanosis. ASSESSMENT AND PLAN: 1. Chronic kidney disease stage 5D. The patient is in need of dialysis today. We will place him on a 2-potassium bath. He is to dialyze for 3-1/2 hours. We will attempt to pull the patient to his outpatient dry weight. 2. Electrolytes and acidosis. The patient is mildly hyperkalemic at 5.7, again with correction on dialysis. 3. Respiratory arrest. The patient has been followed by Dr. Meyer and the primary care team. Dr. Meyer to evaluate any further EEG changes. I would to thank you for allowing us to follow with this patient. Dictated by LACY Cotto for Luis Green MD Face to face encounter, data reviewed, discussed with Aria Wood on 12/14/18. I agree with the above assessment and plan of care. cc: LACY Cotto MD Roger H. Moss Jr, MD MTDD
[2018-12-15] MEDS: PROTONIX IV SCH (03:20)
[2018-12-15] MEDS: SOLU-CORTEF IV SCH ×2 (03:23→09:11)
[2018-12-15] MEDS: SODIUM CHLORIDE 0.9% INJ SCH (03:23)
[2018-12-15 05:05] LABS: ALLEN TEST YES; BE 4.4 mmoll (-3.0-3.0); BLOOD TYPE ARTERIAL; HCO3-(ACT) 28.3 mmoll (20.0-26.0); METHB 0.4 % (0.0-1.5); O2(CT) 19.5 mL/dL (15.0-23.0); O2HB 95.8 % (95.0-99.0); PCO2(98.6) 33 mmHg (35-45); PO2(98.6) 103 mmHg (60-100); SAMPLE BLOOD; SAO2 96.7 % (95.0-100.0); SRATE 14 BPM; THB 14.4 g/dL (11.5-17.4); TVOL 600 mL; pH(98.6) 7.52 (7.35-7.45)
[2018-12-15 05:06] LABS: MODALITY VENTILATOR
[2018-12-15] MEDS: LEVOPHED 16 MG in D5 1/2 NS 250 ML IV SCH (05:32)
[2018-12-15 05:35] LABS: BASO# 0.01 X1000 (0.0-0.2); BASO% 0.1 % (0.0-0.8); HEMOGLOBIN 10.8 g/dL (14.0-18.0); IMM GRAN# 0.07 X1000 (0.0-0.04); IMM GRAN% 0.5 % (0.0-0.5); LYMPH% 2.3 % (20.5-51.1); MCH 29.3 PG (27-31); MCHC 32.7 g/dL (33-37); MCV 89.4 FL (81-99); MONO# 0.71 X1000 (0.11-0.59); MONO% 5.5 % (1.7-9.3); MPV 12.4 FL (7.4-10.4); NEUT# 11.73 X1000 (1.4-6.5); NEUT% 91.6 % (42.2-75.2); PLT 142 X1000 (130-400); RBC 3.69 XMIL (4.7-6.1); RDW 15.8 % (11.5-14.5); WBC 12.82 X1000 (4.8-10.8)
[2018-12-15 05:37] LABS: CALCIUM 7.9 mg/dL (8.8-10.2); CREATININE 3.8 mg/dL (0.7-1.2); POTASSIUM 4.3 mmol/L (3.5-5.1)
[2018-12-15] MEDS: HUMALOG SUBQ SCH ×2 (06:22→11:34)
--- NOTE | 2018-12-15 06:46 | Diag Imaging Result Doc PS360 ---
EXAM: CHEST-1 VIEW HISTORY: SOB TECHNIQUE: Chest single view COMPARISON: 12/14/2018 FINDINGS: The lungs are well expanded. The heart is mildly enlarged. Decreased pulmonary edema. There may be a tiny right pleural effusion. No consolidation. IMPRESSION: Mild interval improvement. Electronically signed by Osman Ruiz 12/15/2018 6:44 AM
[2018-12-15 07:32] LABS: LYMPHS 2 % (21-51); SEGS 98 % (42-75)
--- NOTE | 2018-12-15 08:26 | INFECTIOUS DISEASE PROGRESS NO ---
DATE: 12/15/2018 PRESENT ILLNESS: The patient has Klebsiella emphysematous pyelitis with associated bacteremia. If the patient does have a pneumonia, the Ancef that the patient is getting also covers the Escherichia coli that was obtained from the sputum. MEDICATIONS: The patient has been on Ancef now for a total of 5 days. He was getting antibiotics that also was treating his infection prior to getting Ancef. PHYSICAL EXAMINATION: Vital Signs: Temperature is 98 degrees, pulse 70, respirations 21, blood pressure 119/64. General: The patient is intubated. He is comatose. Head, Eyes, Ears, Nose, and Throat: No drainage noted from the nose or ears. Neck: No stiffness. Lungs: Clear to auscultation. Cardiovascular: Regular heart rate. Extremities: The patient has a functioning AV fistula in the left arm and in the right groin there is a triple-lumen catheter present. Abdomen: Soft and nontender. A peritoneal dialysis catheter is in place. Neurologic: Patient is comatose. There is no tremor. LAB AND X-RAY: Chest x-ray shows a decrease in the patient's pulmonary edema. The patient's CBC shows a white count of 12,820, hemoglobin 10.8, and platelet count 142,000. Blood gases show a pH of 7.52, a PO2 of 103, and a pCO2 of 33. The creatinine is 3.8. The GFR is 16. ASSESSMENT AND PLAN: Patient has emphysematous pyelitis with bacteremia. He may have an Escherichia coli pneumonia. My plan is to continue Ancef. COMORBIDITIES: The patient is elderly, he is diabetic, and he has end-stage renal disease for which he is on hemodialysis. cc: MD Kwabena Quintanilla Jr, MD
[2018-12-15] MEDS: KEFZOL 1 GM/D5W 1 GM/50 ML IVPB IV SCH (09:09)
--- NOTE | 2018-12-15 09:40 | PROGRESS NOTE ---
DATE: 12/15/2018 SUBJECTIVE: The patient is comatose and does not respond to sternal rub at this point. The nurse tells me he did not respond at all to deep suctioning. OBJECTIVE: Vital Signs: Temperature is 98.6 degrees Fahrenheit. Blood pressure 119/64, respirations 21, pulse 70. HEENT: Normocephalic, but staring straight ahead. Pupils only mildly responsive to light. Lungs have a few coarse rhonchi anteriorly. Heart: Regular rate and rhythm without murmurs, gallops, or friction rubs. Abdomen soft. Active bowel sounds. No organomegaly or tenderness. White count is 12,820. Hemoglobin 10.8. Blood gas shows pH 7.52, pCO2 of 33, PO2 of 103. Electrolytes essentially normal. Blood sugar is 198. Repeat urinalysis shows urine nitrate that is positive. RBCs too numerous to count. WBCs too numerous to count. EEG shows worsening of brain wave patterns. Neurology did not see any reversible aspects on his EGD for brain anoxia and is in favor of withholding treatment. No family members are here this morning. I will try to catch up with them later today. ASSESSMENT: 1. Emphysematous pyelitis. 2. Asystole with code. 3. Anoxic brain injury. 4. Adult onset diabetes mellitus. 5. Coronary artery disease. 6. Sepsis. 7. Peripheral vascular disease. 8. Respiratory arrest. At this time, we will continue support. Family is trying to decide whether to make a DNR, whether to withhold treatment. cc: Kwabena Casillas Jr, MD
--- NOTE | 2018-12-15 11:16 | EEG REPORT ---
DATE: 12/14/2018 EEG #[id number]: COMMENT: This is a digitally recorded EEG done portably in the ICU on a patient with persistent coma, clinical course consistent with anoxic brain injury. FINDINGS: Most of the record is extremely low voltage. There are very infrequent and very brief (1/2- 1 second) bursts of 20-30 microvolt activity mostly central. There was no response to noxious stimulation. No epileptiform discharge was identified. Usual ICU artifacts were present and did not hinder interpretation. Photic stimulation did not alter the record. INTERPRETATION: Abnormal EEG because of marked voltage suppression. CORRELATION: This is indicative of diffuse encephalopathy, electrographically severe. This is consistent with anoxic brain injury and carries extremely poor prognosis. cc: MD Kwabena Jackson III, Jr, MD MTDD
--- NOTE | 2018-12-15 11:45 | PROGRESS NOTE ---
DATE: 12/15/2018 OBJECTIVE: Mr. Raymon Ramon has minimal lateral eye movement with passive head turning. I did not see definite corneal reflex. There was no pupil reaction to light. Pupils are small. There was no spontaneous limb movement. I reviewed the EEG done yesterday and compared that with initial EEG several days earlier. IMPRESSION: Discussed again very frankly with family. He sustained anoxic brain injury and this is irreversible. His clinical course and EEG findings are typical of irreversible anoxic brain injury. He will not survive. I agree completely with decision to discontinue support. I believe that family has come to that decision. Thanks for asking Neurology to see Mr. Raymon Ramon. cc: MD Kwabena Jackson III, Jr, MD
--- NOTE | 2018-12-15 12:18 | PROGRESS NOTE ---
DATE: 12/15/2018 I talked with the patient's son and he tells me that the family is in agreement to take the patient off the ventilator and let him go in God's hands. The patient shows no signs of irreversibility of his anoxic brain injury on his EEG and Neurology is in agreement with this. The patient's was downstairs. She speaks very little or no Cambodian. We will have her come back up when she is through with her lunch and with corporate risk analyst go over the DNR meanings and then if still in agreement, we will extubate and try to make as comfortable as possible. cc: Kwabena Casillas Jr, MD
[2018-12-15 15:34] VITALS: BP 90/59
[2018-12-15] MEDS: MORPHINE IV PRN ×6 (16:46→23:33)
--- NOTE | 2018-12-15 20:12 | PROGRESS NOTE ---
DATE: 12/15/2018 SUBJECTIVE: The patient has now been extubated. He has a few gurgling sounds in his chest on examination. Family had decided to just use comfort measures because of the patient's anoxic brain injury. OBJECTIVE: At this time, patient is maintaining his blood pressure and he is breathing. He is not responsive. Vital signs: Around 3:00, before he was extubated show blood pressure of 90/59, respirations 15, pulse 65. At this time we are really not doing vital signs and will support him. He is being given morphine to make him comfortable. Will talk with family again as they are outside the room. All seem aware of the circumstances and know that there is not anything else that we can do but to try to make him as comfortable as possible. cc: Kwabena Casillas Jr, MD
--- NOTE | 2018-12-16 00:13 | NEPHROLOGY PROGRESS NOTE ---
DATE: 12/15/2018 DATE SEEN: 12/15/2018. TIME SEEN: 0800. SUBJECTIVE: Mr. Ennis is resting quietly in bed. He is unresponsive. He remains ventilator- dependent. No sedation present. OBJECTIVE: Vital Signs: Temperature 97.5 degrees, blood pressure 110/58, heart rate 73, respirations 12. He is on 80% FiO2. Last recorded saturation 100%. He has had 178 in, 2297 out. Labs: Sodium 139, potassium 4.3, chloride 94, CO2 24, BUN 70, creatinine 3.8, glucose 198. Anion gap 21. Calcium 7.9. White count 12.8, hemoglobin 10.8, hematocrit 33, platelet count 142,000. ABGs: pH 7.52, CO2 33, PO2 103, bicarb 28.3, with a lactate of 2, on 80% FiO2. PHYSICAL EXAMINATION: General: This is a 68-year-old male, resting quietly in bed. He appears critically ill, though no acute distress. Ventilator-dependent. Skin: Warm and dry. HEENT: Normocephalic, atraumatic. Conjunctiva is disconjugate. Mucous membranes are dry. Oral ET tube remains in place. Neck: Supple. Trachea midline. No JVD. Cardiovascular: Regular rate and rhythm. S4 is present. Lungs: Clear to auscultation anterior. Equal excursion. Ventilatory support. Abdomen: Large, soft, nontender. Positive bowel sounds. Genitourinary: Not inspected. Minimal void with dialysis-assist. Extremities: No edema. No clubbing or cyanosis. Neurological: As above. ASSESSMENT AND PLAN: 1. Chronic kidney disease, stage 5D. The patient's routine dialysis is Friday, Friday, Friday. We will re-evaluate dialysis for the a.m. 2. Electrolytes and acid-base balance. This remains stable after correction on dialysis yesterday. 3. Anemia. This is acceptable. 4. Respiratory failure, status post respiratory arrest. I have had a discussion with the family early this a.m. in regards with making the patient a DNR. They wish to talk with Dr. Casillas when he arrives. They are unsure as to further dialysis treatments at this time, to speak with Dr. Green this afternoon. I would like to thank you for allowing us to follow with this patient. Dictated by LACY Cotto for Luis Green MD Face to face encounter, data reviewed, discussed with Carlo Wood on 12/15/18. I agree with the above assessment and plan of care. cc: LACY Cotto MD Roger H. Moss Jr, MD MTDD
--- NOTE | 2018-12-16 09:17 | DISCHARGE SUMMARY ---
ADMISSION DATE: 12/08/2018 DISCHARGE DATE: 12/16/2018 FINAL DIAGNOSES: 1. Anoxic brain injury. 2. Asystole. 3. Emphysematous pyelitis. 4. Sepsis. 5. Coronary artery disease. 6. Peripheral vascular disease. 7. Adult-onset diabetes mellitus. 8. Hyperlipidemia. 9. Hypertension. 10. History of deep venous thrombosis. 11. Renal failure, on dialysis. 12. Cholelithiasis, asymptomatic. HOSPITAL COURSE: The patient was admitted on 12/08/2018, at 12:15 a.m. on 12/16/2018. The patient came in having left upper quadrant abdominal pain running down to the left lower abdomen. CT scan showed emphysematous pyelitis. The patient was started on antibiotics. He did grow out Klebsiella both in his urine and in his blood. White count was initially high and then he developed a pancytopenia for a short period time that did rebound. The patient had underlying coronary artery disease and was found unresponsive, in asystole, was coded, and sinus rhythm was brought back. The patient was on a ventilator. He appeared to have anoxic brain injury. We did a CT scan that was unrevealing. We did an EEG that was revealing, repeated the EEG yesterday and it showed worsening. The patient's family made him a No Code Blue and then decided that they did not want anything but comfort measures. He was extubated and a few hours later . During this time, the patient just did not have any real response neurologically. We felt that, after he went into asystole and was coded, he just did not have enough oxygen to his brain for a prolonged period time and had permanent brain damage. CONSULTATIONS: 1. Dr. Jagjit Zaman and Dr. Enzo Bermudez, Pulmonology. 2. Dr. Keanu Harding, Infectious Disease. 3. Dr. Joellen Meyer, Neurology 4. Dr. José Miguel Nicole, Cardiology. 5. Dr. Daljit Parikh, Surgery. 6. Dr. Luis Green, Nephrology. 7. Dr. Donald Hollingsworth, Urology. cc: Kwabena Casillas Jr, MD
== END 2018-12-16 00:15 | disposition expired | DRG 689 ==
LOC: SUPCPDRO → ED 08:44 → 3N 13:50 → ICU 12-09 02:44
PROVIDERS: ADMIT Emergency Medicine; ATTEND Emergency Medicine
CPT/HCPCS: 31500; 36430; 70450; 71010; 71045; 74176; 80048; 80053; 81001; 82550; 82553; 82805; 82948; 83036; 83880; 84145; 84484; 85025; 85379; 85610; 85730; 86850; 86900; 86901; 86920; 87040; 87070; 87077; 87088; 87186; 87205; 89220; 92950; 93005; 93010; 93306; 94002; 94003; 95816; 96365; 96367; 99285; A9270; C8929; C9113; J0171; J0690; J1644; J1720; J1815; J2270; J2370; J2405; J2543; J3370; J3430; J7030; J7050; P9016; P9017; Q9957; S0164; XXXXX